=== PATIENT | female | born 1945 | race Caucasian/White ===

== ENCOUNTER 2020-11-30 09:19 | Emergency (ER) | payer OTHER, SELFPAY ==
[~2020-11-30] VITALS: Ht 162.6 cm; Wt 55.3 kg
--- NOTE | 2020-11-30 09:19 | NUR ---
[place] [facility] [place]. RN evaluating the patient at bedside.
[2020-11-30 09:20] VITALS: BP 121/60
--- NOTE | 2020-11-30 09:25 | NUR ---
RT AT BEDSIDE, PLACED PATIENT ON NON-REBREATHER 15 L/MIN. LOWERED PATIENT DOWN TO NC WITH 6L/MIN CURRENTLY AT 98% O2. RT SUCTIONED STOMA BEDSIDE. CLEANED STOMA BEDSIDE AND PLACED GAUZE OVER. PATIENT CURRENTLY STABLE. Addendum: 11/30/20 at 0941 by [email or web address] MOHINI LEVI COLLECTED SPUTUM CULTURE. MD SOLANO AWARE Addendum: 11/30/20 at 1017 by [email or web address] CLEANED STOMA WITH CLEAN TECHQNIUE
--- NOTE | 2020-11-30 09:37 | NUR ---
LAB CHIO BLOOD BEDSIDE
--- NOTE | 2020-11-30 09:39 | NUR ---
CHEST XRAY PERFORMED BEDSIDE
[2020-11-30] MEDS ORDERED: ALBUTEROL SULFATE/IPRATROPIU 3 ML SOL IH ONE ×2 (09:45→12:45)
[2020-11-30 09:46] LABS: BASOPHILS % (AUTO) 0.3 % (0.0-2.0); EOSINOPHILS # (AUTO) 0.1 K/uL (0-0.4); EOSINOPHILS % (AUTO) 0.9 % (0.0-4.0); HEMATOCRIT 30.5 % (36-48); HEMOGLOBIN 10.2 g/dL (12.0-16.0); LYMPHOCYTES # (AUTO) 0.9 K/uL (2.5-16.5); LYMPHOCYTES % (AUTO) 8.6 % (20.5-51.1); MEAN CORPUSCULAR HEMOGLOBIN 29 pg (27-31); MEAN CORPUSCULAR HGB CONC 33 g/dL (33-37); MEAN CORPUSCULAR VOLUME 86.1 fL (80-94); MONOCYTES # (AUTO) 0.8 K/uL (0.8-1.0); MONOCYTES % (AUTO) 7.7 % (1.7-9.3); NEUTROPHILS % (AUTO) 82.5 % (42.2-75.2); PLATELET COUNT (AUTO) 266 K/uL (140-450); RED BLOOD CELL COUNT(AUTO) 3.54 MIL/uL (4.20-5.40); RED CELL DISTRIBUTION WIDTH 14.8 % (11.6-13.7); WHITE BLOOD COUNT (AUTO) 10.9 K/uL (4.8-10.8)
--- NOTE | 2020-11-30 09:48 | NUR ---
RT BEDSIDE, COLLECTED ABG BLOODWORK PATIENT PLACED INTO GOWN
[2020-11-30] MEDS ORDERED: SENN-72 PO (09:52)
[2020-11-30] MEDS ORDERED: BUPR150T12 PO (09:52)
[2020-11-30] MEDS ORDERED: CHLO1SOL3 (09:52)
[2020-11-30] MEDS ORDERED: FLO110 INH (09:52)
[2020-11-30] MEDS ORDERED: ASPI-1822 PO (09:52)
[2020-11-30] MEDS ORDERED: ALBU-118 IH (09:52)
[2020-11-30] MEDS ORDERED: BUPR-10 PO (09:52)
[2020-11-30] MEDS ORDERED: GABA300C PO (09:52)
[2020-11-30] MEDS ORDERED: ACET-8386 PO (09:52)
[2020-11-30] MEDS ORDERED: HYDR-4924 PO (09:52)
[2020-11-30] MEDS ORDERED: DOCU-299 PO (09:52)
[2020-11-30] MEDS ORDERED: OXYB15TA2 PO (09:52)
[2020-11-30] MEDS ORDERED: MIRABULK PO (09:52)
[2020-11-30] MEDS ORDERED: FAMO-90 PO (09:52)
[2020-11-30] MEDS ORDERED: ACET-9525 PO (09:52)
--- NOTE | 2020-11-30 10:01 | NUR ---
PROVIDED PATIENT WATER BEDSIDE
[2020-11-30 10:04] LABS: ALBUMIN 2.6 g/dL (3.4-5.0); ANION GAP 8.2 (8-16); ASPARTATE AMINOTRANSFERASE 18 U/L (15-37); CARBON DIOXIDE 29.4 mmol/L (21-32); CHLORIDE 103 mmol/L (98-107); CREATININE 0.8 mg/dL (0.6-1.3); GLUCOSE 119 mg/dL (74-106); POTASSIUM 3.6 mmol/L (3.5-5.1); SODIUM SERUM 137 mmol/L (136-145); TOTAL BILIRUBIN 0.7 mg/dL (0.0-1.0); UREA NITROGEN, BLOOD 14 mg/dL (7-18)
--- NOTE | 2020-11-30 10:06 | NUR ---
LOWERED NC O2 TO 4L/MIN, PATIENT O2 96%
--- NOTE | 2020-11-30 10:13 | NUR ---
75 Y/O FEMALE [place] [facility] [place] STAFF NOTICED PT HAD O2 STAT OF 77% ON RA WITH SOB. TACHYPNEA 20-30 RESPIRATIONS. PATIENT COMPLAINS OF CHEST PAIN X3 DAYS, STATES "PAIN IS 7/10 AND FEELS LIKE PRESSURE IS FELT THROUGHOUT RIBS/CHEST AREA." STATES HAS SOB DUE TO CHEST PAIN. PATIENT HAD TRACHESTOMY TUBE TAKEN OUT X3 DAYS AGO, STOMA STILL OPEN. STOMA COVERED WITH GAUZE, AND PATIENT IS ABLE TO SPEAK CLEARLY WHEN PLACING HAND OVER STOMA. PMH: COPD ALLERGIES: CODEINE, DIPHENHYDRAMINE, LATEX, METHYLPREDNISOLONE, NAPROXEN, SIMVASTATIN, ADHESIVE TAPE, BACITRACIN, CEPHALEXIN, NEOMYCIN
--- NOTE | 2020-11-30 10:15 | NUR ---
RT BEDSIDE PROVIDING PATIENT WITH BREATHING TX
--- NOTE | 2020-11-30 10:58 | NUR ---
OSMEL YOLA TEST TAKEN BEDSIDE AND WALKED OVER TO LAB
--- NOTE | 2020-11-30 11:40 | NUR ---
SPOKE TO DAUGHTER MAYURI AND PROVIDED UPDATE ON CURRENT STATUS. INFORMED DAUGHTER THAT MOTHER IS STABLE AND CURRENTLY WAITING ON TRANSFER ORDERS
[2020-11-30] MEDS ORDERED: LORazepam 2 MG/ML VIAL IVP ONE ×2 (11:55)
--- NOTE | 2020-11-30 11:59 | NUR ---
CHANGED STOMA DRESSING BEDSIDE. PATIENT CURRENTLY SATING 95% ON 5 L VIA NC
--- NOTE | 2020-11-30 12:44 | NUR ---
SPOKE WITH HILLIARD FROM [facility] IN REGARDS TO TRANSFER; FAXED OVER COPY OF NEGATIVE COVID TEST
[2020-11-30] MEDS ORDERED: MAG SULF 2000 MG/WATER PREMIX 50 ML IV ONE (12:45)
--- NOTE | 2020-11-30 13:32 | NUR ---
RECIEVED CONSENT FROM PATIENT FOR TRANSFER TO [facility]
[2020-11-30] MEDS ORDERED: NACL 0.9% 500 ML IV ONE (13:40)
--- NOTE | 2020-11-30 13:48 | NUR ---
SPOKE WITH CHARGE MAVERICK FROM [facility] TO GIVE REPORT FOR PENDING TRANSFER. PER MAVERICK CHARGE WILL RECIEVE CALL BACK FROM RECIEVING NURSE FOR TRANSFER. ETA FOR EMS IS 1 HOUR.
--- NOTE | 2020-11-30 14:19 | NUR ---
GAVE REPORT TO BRUCE TEMPLE AT [facility] FOR PATIENT TRANSFER
--- NOTE | 2020-11-30 14:33 | NUR ---
[facility] at bedside for pickling operator.
[2020-11-30 14:41] VITALS: BP 119/67
--- NOTE | 2020-11-30 14:43 | NUR ---
Note undone in EDM - 11/30/20 at 1445 by [email or web address] Patient to be transferred to [facility]. Is being transferred due to . Receiving facility has accepting physician and available space. ER physician has signed transfer form. Patient or responsible democrat has agreed to transfer and signed form. Patient belongings inventoried and will be sent with patient. Copy of nursing notes, lab reports, EKG, Physicians Orders and X-rays to be sent with patient. Report called to at receiving facility. ambulance service has been called for transfer. ETA is .
--- NOTE | 2020-11-30 14:45 | NUR ---
Patient to be transferred to [facility]. Is being transferred due to CONT OF CARE AND INSURANCE REQUEST. Receiving facility has accepting physician and available space. ER physician has signed transfer form. Patient or responsible green party has agreed to transfer and signed form. Patient belongings inventoried and will be sent with patient. Copy of nursing notes, lab reports, EKG, Physicians Orders and X-rays to be sent with patient. Report called to BRUCE TEMPLE RN at receiving facility. [facility] ambulance service has been called for transfer. ETA is 1515.
--- NOTE | 2020-12-04 08:49 | NUR ---
LATE ENTRY- Sputum culture results faxed to [facility] ATTN: Nichole at [phone] Schmitz's instruction.
== END 2020-11-30 14:45 | disposition short-term general hospital (02) ==
LOC: MED 09:19
DX: J96.01 Acute respiratory failure with hypoxia (principal); J44.1 Chronic obstructive pulmonary disease with (acute) exacerbation; I11.9 Hypertensive heart disease without heart failure; Z88.2 Allergy status to sulfonamides; Z88.1 Allergy status to other antibiotic agents; Z88.6 Allergy status to analgesic agent; Z88.8 Allergy status to other drugs, medicaments and biological substances; Z91.040 Latex allergy status; Z88.5 Allergy status to narcotic agent; Z79.899 Other long term (current) drug therapy; Z20.822 Contact with and (suspected) exposure to COVID-19
CPT/HCPCS: 36415; 36600; 71045; 80053; 82803; 83605; 84484; 85025; 85379; 87070; 87186; 87205; 87426; 93005; 94640; 96365; 96366; 96375; 99291; J2060; J3475

== ENCOUNTER 2021-03-27 05:35 | Inpatient (IN) | payer OTHER, SELFPAY ==
[~2021-03-27] VITALS: Ht 160 cm; Wt 57.6 kg
[2021-03-27 05:35] VITALS: BP 115/74
[~2021-03-27 05:35] MED LIST: ACET-8386 PO; ACET-9525 PO; ALBU-118 IH; ASPI-1822 PO; BUPR-10 PO; BUPR150T12 PO; CHLO1SOL3; DOCU-299 PO; FAMO-90 PO; FLO110 INH; GABA300C PO; HYDR-4924 PO; MIRABULK PO; OXYB15TA2 PO; SENN-72 PO
--- NOTE | 2021-03-27 05:35 | NUR ---
RT AT BEDSIDE.
--- NOTE | 2021-03-27 05:35 | NUR ---
BIBA TO ROOM 10 FROM HOME WITH C/O RESPIRATORY DISTRESS. PER MEDIC POSSIBLE OD ON HYDROCODONE AND MORPHINE. NARCAN WAS GIVEN IRRIGATION WORKER. PT IS NON VERBAL AND LAST SEEN NORMAL WAS 0330. UPON ARRIVAL VENTILATIONS ARE ASSISTED PER AMBU BAG, FIO2 AT 100 %. PMH : THROAT CA NKDA
--- NOTE | 2021-03-27 05:35 | NUR ---
0530- PT MESERET VIA GURNEY TO BED 10.
--- NOTE | 2021-03-27 06:00 | NUR ---
CODE STROKE INITIATED
--- NOTE | 2021-03-27 06:10 | NUR ---
EKG DONE = ST. 20G SL INTACT TO LEFT A/C
--- NOTE | 2021-03-27 06:20 | NUR ---
TO CT VIA [facility]
--- NOTE | 2021-03-27 06:29 | NUR ---
RETURNED FROM CT
[2021-03-27] MEDS ORDERED: CARV3.12 PO (06:57)
[2021-03-27] MEDS ORDERED: ACET-9529 PO (06:59)
[2021-03-27] MEDS ORDERED: MSCON15 PO (07:04)
--- NOTE | 2021-03-27 07:12 | NUR ---
TO CT VIA [facility]
[2021-03-27 07:14] LABS: HEMATOCRIT 36.1 % (36-48); MEAN CORPUSCULAR HEMOGLOBIN 24 pg (27-31); MEAN CORPUSCULAR HGB CONC 31 g/dL (33-37); MEAN CORPUSCULAR VOLUME 77.3 fL (80-94); PLATELET COUNT (AUTO) 456 K/uL (140-450); RED BLOOD CELL COUNT(AUTO) 4.66 MIL/uL (4.20-5.40); RED CELL DISTRIBUTION WIDTH 16.9 % (11.6-13.7)
--- NOTE | 2021-03-27 07:24 | NUR ---
RETURNED FROM CT
[2021-03-27 07:27] LABS: WHITE BLOOD COUNT (AUTO) 28.6 K/uL (4.8-10.8)
[2021-03-27 07:31] LABS: LYMPHOCYTES % (MANUAL) 3 % (20-46); MONOCYTES % (MANUAL) 4 % (5-12); PROTHROMBIN TIME 12.6 secs (10.8-13.4)
--- NOTE | 2021-03-27 07:31 | NUR ---
PT ON TELE NEURO
[2021-03-27] MEDS ORDERED: NACL 0.9% 1,000 ML IV ONE (07:40)
[2021-03-27 08:17] LABS: ALBUMIN 2.8 g/dL (3.4-5.0); ANION GAP 22.4 (8-16); ASPARTATE AMINOTRANSFERASE 56 U/L (15-37); CARBON DIOXIDE 21.4 mmol/L (21-32); CHLORIDE 103 mmol/L (98-107); GLUCOSE 166 mg/dL (74-106); POTASSIUM 3.8 mmol/L (3.5-5.1); SODIUM SERUM 143 mmol/L (136-145); TOTAL BILIRUBIN 0.6 mg/dL (0.0-1.0); UREA NITROGEN, BLOOD 32 mg/dL (7-18)
[2021-03-27] MEDS ORDERED: PIPERACILLIN/TAZOBACTAM 3.375 GM in DEXTROSE 5% 50 ML IV ONE (08:30)
[2021-03-27] MEDS ORDERED: ASPIRIN 600 MG SUPP RC ONE (08:30)
[2021-03-27] MEDS ORDERED: PIPERACILLIN/TAZOBACTAM 3.375 GM VIAL IV ONE ×2 (08:33→23:29)
[2021-03-27 09:32] LABS: BILIRUBIN,URINE NEGATIVE (NEGATIVE); BLOOD, URINE 3+ (NEGATIVE); COLOR,URINE YELLOW (YELLOW); LEUKOCYTE ESTERASE ,URINE 1+ (NEGATIVE); NITRITE, URINE NEGATIVE (NEGATIVE); UGLUCOSE NEGATIVE (NEGATIVE)
--- NOTE | 2021-03-27 09:37 | NUR ---
SPOKE WITH ALIN HUANG PT'S SON [phone]. STATES HE TAKES CARE OF HER AT HOME, HER LAST KNOWN WELL WAS 11PM.
[2021-03-27 09:43] LABS: RBC,URINE 11-20 (MOD) /HPF (0-5)
[2021-03-27 09:44] LABS: WBC,URINE 16-25 (MOD) /HPF (0-5)
[2021-03-27 09:45] LABS: APPEARANCE,URINE HAZY (CLEAR)
--- NOTE | 2021-03-27 09:46 | NUR ---
RT AT BEDSIDE OBTAINING ABG
--- NOTE | 2021-03-27 09:50 | NUR ---
placed patient on bipap per md horta's orders. md robles wants settings to be 8/4 and titrate fio2 as tolerated. palced gel under bipap mask. pt has open wounds in face from previous illness. pt is alot of pain. rn aware. will continue to monitor.
--- NOTE | 2021-03-27 10:00 | NUR ---
SPOKE WITH MAYURI CARCAMO'S DAUGTHER. UPDATED ON PT STATUS. ALL QUESTIONS AND CONCERNS ANSWERED AT THIS TIME
--- NOTE | 2021-03-27 11:48 | NUR ---
Patient has eyes closed, resting in bed. Vital Signs within normal limits. Respirations even and unlabored. Chest rise is symmetrical. On Bipap. Will continue to monitor
--- NOTE | 2021-03-27 13:58 | NUR ---
PT TOLERATING BIPAP. NO NEW ORDERS. WILL CONTINUE TO MONITOR PATIENT.
--- NOTE | 2021-03-27 14:08 | NUR ---
SPOKE WITH RICA AT [facility], UPDATED ON PT STATUS
[2021-03-27] MEDS ORDERED: INTUBATION KIT MC ONE (18:06)
[2021-03-27] MEDS ORDERED: KETAMINE 10 MG/ML UD SYR **ER IVP ONE (18:15)
[2021-03-27] MEDS ORDERED: SUCCINYLCHOLINE CHLORIDE 200 MG/10 ML VIAL IV ONE (18:28)
[2021-03-27] MEDS ORDERED: ROCURONIUM 50 MG/5 ML VIAL IV ONE (18:28)
[2021-03-27] MEDS ORDERED: PROPOFOL 1000 MG/100 ML PREMIX 100 ML IV ONE (18:49)
[2021-03-27] MEDS ORDERED: DEXMEDETOMIDINE HCL 100 MCG/ML 2 ML VIAL IV ONE (19:13)
--- NOTE | 2021-03-27 19:50 | NUR ---
patient BP dropping to 70s/50s related to sedation used. JOSE MARIA made aware and MD Campa made aware.
[2021-03-27] MEDS ORDERED: MIDAZOLAM MDV 50 MG/10 ML VIAL IV ONE (20:13)
[2021-03-27] MEDS ORDERED: fentaNYL citrate 0.05 MG/ML VIAL ONE (20:15)
--- NOTE | 2021-03-27 20:17 | NUR ---
Patient BP trending down, and patient being diaphoretic and cool to the touch, ERMD made aware. Called Katheryn COLINDRES for updates and orders.
[2021-03-27] MEDS ORDERED: NOREPINEPHRINE 4 MG/4 ML VIAL IV ONE (20:28)
--- NOTE | 2021-03-27 21:25 | NUR ---
ERMD flammia at bedside attempting to insert a central line.
--- NOTE | 2021-03-27 21:40 | NUR ---
patient started a new central line in the left IJ-- patient tolerated well.
[2021-03-27 22:01] VITALS: BP 92/59
--- NOTE | 2021-03-27 23:43 | NUR ---
refer to down time hard copy
[2021-03-28] VITALS (24 sets, daily range): BP systolic 54–133; BP diastolic 36–95
[2021-03-28] MEDS ORDERED: NOREPINEPHRINE 4 MG/4 ML VIAL IV ONE ×3 (00:18→06:04)
[2021-03-28] MEDS ORDERED: MIDAZOLAM MDV 50 MG in NACL 0.9% 40 ML IV PRN (00:55)
[2021-03-28] MEDS ORDERED: ONDANSETRON 4 MG/2 ML VIAL IVP PRN ×2 (00:55→07:45)
[2021-03-28] MEDS ORDERED: ACETAMINOPHEN 325 MG TAB PO PRN (00:55)
[2021-03-28] MEDS ORDERED: DEXMEDETOMIDINE HCL 400 MCG in NACL 0.9% 96 ML IV PRN (00:55)
--- NOTE | 2021-03-28 01:00 | NUR ---
RECIEVED PT ADMISSION FROM ED, PT BIV STERLINGRNEY, A&OX0, SEDATED RASS -3, PUPILS REACTIVE 2CM, ETT TO VENT ACVC FIO2 100% TV 350 RATE 16 PEEP 5, ST ON MONITOR, PT FEBRILE TEMP 102.5 RECTAL, VS: BP 108/75 HR 128 RR37 SPO2 100%, SKIN COOL DRY AND NON INTACT, PT HAS SACRAL REDNESS AND S/P SURGICAL WOUND SITE, ABD SOFT AND NON TENDER TO TOUCH, FC IN PLACE DRAINING VIA GRAVITY, OSTOMY IN PLACE, LIJ TL INFUSING LEVOPHED @ 24MCG/MIN VERSED @ 1 MG/HR PRECEDEX @ 0.3 MCG/KG/HR, DW 49.8 KG, LAC 20 G PIV SALINE LOCKED, CALL LIGHT WITHIN REACH, SAFEY MEASURES IN PLACE, WILL CONTINUE WITH CURRENT POC
--- NOTE | 2021-03-28 01:15 | NUR ---
COOLING BLANKET AND MEASURES INITITATED
[2021-03-28] MEDS: DEXT 5% / NACL 0.45% 1,000 ML IV SCH ×3 (01:54→20:55)
--- NOTE | 2021-03-28 02:40 | NUR ---
PT TEMP 99.7 RECTAL, REPOSITIONED PT, VAP ORAL CARE GIVEN, SAFETY MEASURES IN PLACE, WILL CONTINUE WITH CURRENT POC
[2021-03-28] MEDS: NOREPINEPHRINE 8 MG in DEXTROSE 5% 250 ML IV PRN ×3 (02:56→10:01)
[2021-03-28] MEDS ORDERED: PIPERACILLIN/TAZOBACTAM 3.375 GM VIAL IV ONE (03:44)
--- NOTE | 2021-03-28 04:10 | NUR ---
MORNING CARE PROVIDED, REPOSITIONED PT, VAP ORAL CARE GIVEN, PT SHOWING SIGNS OF ACUTRE DISTRESS, SAFETY MEASURES IN PLACE
[2021-03-28] MEDS: PIPERACILLIN/TAZOBACTAM 3.375 GM in DEXTROSE 5% 50 ML IV SCH ×3 (04:32→20:28)
--- NOTE | 2021-03-28 04:33 | NUR ---
ADMINISTERED 0500H MEDICAITON PER MD ORDERS
--- NOTE | 2021-03-28 06:08 | NUR ---
PT DAUGHTER MAYURI CALLED AND UPDATED ON PTS CONDITION
[2021-03-28 06:10] LABS: ALBUMIN 2.2 g/dL (3.4-5.0); ANION GAP 17.6 (8-16); ASPARTATE AMINOTRANSFERASE 719 U/L (15-37); CARBON DIOXIDE 21.4 mmol/L (21-32); CHLORIDE 105 mmol/L (98-107); CREATININE 1.5 mg/dL (0.6-1.3); GLUCOSE 334 mg/dL (74-106); SODIUM SERUM 140 mmol/L (136-145); TOTAL BILIRUBIN 0.3 mg/dL (0.0-1.0); UREA NITROGEN, BLOOD 49 mg/dL (7-18)
[2021-03-28 06:13] LABS: HEMATOCRIT 32.8 % (36-48); HEMOGLOBIN 9.8 g/dL (12.0-16.0); MEAN CORPUSCULAR HEMOGLOBIN 23 pg (27-31); MEAN CORPUSCULAR HGB CONC 30 g/dL (33-37); MEAN CORPUSCULAR VOLUME 77.8 fL (80-94); PLATELET COUNT (AUTO) 311 K/uL (140-450); RED BLOOD CELL COUNT(AUTO) 4.22 MIL/uL (4.20-5.40); RED CELL DISTRIBUTION WIDTH 17.2 % (11.6-13.7)
--- NOTE | 2021-03-28 07:16 | NUR ---
ENDORSED TO DAY SHIFT RN FOR CONTINUITY OF CARE
[2021-03-28 07:36] LABS: WHITE BLOOD COUNT (AUTO) 26.2 K/uL (4.8-10.8)
[2021-03-28 07:37] LABS: LYMPHOCYTES % (MANUAL) 4 % (20-46); MONOCYTES % (MANUAL) 3 % (5-12)
--- NOTE | 2021-03-28 07:43 | NUR ---
ON DUTY RECEIVED THIS PT ON VENT: [id number] WITH SEDATION OF PRECEDEX 0.3. VERSED 1, LEVOPHED 32. D5 1/2 100ML/HR. VS STABLE.
[2021-03-28] MEDS ORDERED: LORazepam 2 MG/ML VIAL IM/IVP PRN (07:45)
[2021-03-28] MEDS ORDERED: ZOLPIDEM 5 MG TAB PO PRN (07:45)
[2021-03-28] MEDS ORDERED: DOCUSATE SODIUM 100 MG GELCAP PO PRN (07:45)
[2021-03-28] MEDS ORDERED: MORPHINE SULFATE 2 MG/ML SYR IVP PRN (07:45)
--- NOTE | 2021-03-28 08:09 | NUR ---
PRECEDEX, NEW BAG WAS CHANGED. DRIP IS RUNNING 0.3MCG/KG/HR. IN 3.73ML/HR.
--- NOTE | 2021-03-28 08:19 | NUR ---
PT IS STRIVING AND FIGHTING. VENT MACHINE ALERMING. PER RT REQUEST. VERSED DRIP INCREASED TO 2MG/HR FROM 1MG/HR.
[2021-03-28 08:59] LABS: CHOL/HDL RATIO 3.9 (1-4.5); FREE T4 (FREE THYROXINE) 0.91 ng/dL (0.76-1.46); PHOSPHORUS 5.3 mg/dL (2.5-4.9); THYROID STIMULATING HORMONE 1.16 uIU/mL (0.34-3.74)
--- NOTE | 2021-03-28 10:05 | NUR ---
PATIENT HAS BEEN SCREENED AND CATEGORIZED HIGH NUTRITION RISK. PATIENT WILL BE SEEN WITHIN 1-2 DAYS OF ADMISSION. 03/28/21-03/29/[address]
[2021-03-28 10:12] LABS: PROTHROMBIN TIME 13.9 secs (10.8-13.4)
--- NOTE | 2021-03-28 10:50 | NUR ---
MD POSEY AT BEDSIDE. MADE VENT CHANGES. NEW VENT CHANGES ARE PC 26 RR 20 +5 AND TITRATE FIO2 TOLERATED . PT CURRENTLY ON NEW VENT SETTINGS AND TOLERATING WELL. ABG WILL FOLLOW AT 1300 PER MD'S ORDERS. WILL CONTINUE TO MONITOR PATIENT.
[2021-03-28] MEDS ORDERED: VANCOMYCIN PER PHARMACY MC PRN (11:00)
--- NOTE | 2021-03-28 11:11 | NUR ---
DR. CHAPARRO CAME IN TO SEE PT. NEW ORDER PUT IN. VASOPRESSOR DRIP. PHENTANYL DRIP AND D/C'D PRECEDEX. VENT CHANGED TO AC/PC [id number]. 20/40. VENT ALARMING STOPPED. CHECK WOUND WAS SQUIZED BY DR. CHAPARRO. LOT OF PUS CAME OUT AND WIPPED OUT.
[2021-03-28 12:05] LABS: ANION GAP 18.7 (8-16); CARBON DIOXIDE 21.4 mmol/L (21-32); CHLORIDE 103 mmol/L (98-107); CREATININE 1.6 mg/dL (0.6-1.3); GLUCOSE 331 mg/dL (74-106); POTASSIUM 4.1 mmol/L (3.5-5.1); SODIUM SERUM 139 mmol/L (136-145); UREA NITROGEN, BLOOD 50 mg/dL (7-18)
[2021-03-28] MEDS: fentaNYL citrate 1 MG in NACL 0.9% 80 ML IV PRN (12:10)
[2021-03-28] MEDS: VASOPRESSIN 20 UNITS in NACL 0.9% 250 ML IV PRN ×2 (12:28→20:54)
[2021-03-28] MEDS ORDERED: LOVENOX 1MG/KG Q12H SUBQ SCH (12:50)
[2021-03-28] MEDS ORDERED: VANCOMYCIN 750 MG in NACL 0.9% 250 ML IV SCH (13:30)
[2021-03-28] MEDS ORDERED: ENOXAPARIN 60 MG/0.6 ML SYR SUBQ SCH (14:00)
--- NOTE | 2021-03-28 14:05 | NUR ---
03/28/21 RD INITIAL ASSESSMENT COMPLETED PLEASE REFER TO NUTRITION ASSESSMENT UNDER CARE ACTIVITY FOR ESTIMATED NUTRITIONAL NEEDS. 1. WHEN/ IF MEDICALLY STABLE START VITAL 1.2 @45ML/HR, WATER FLUSH 170ML, Q6H -THIS PROVIDES 1080 ML, 1296 KCALS AND [address] TO FOLLOW-UP 2-3 DAYS, HIGH RISK REVIEWED BY ZAKIA HURTADO RD
[2021-03-28] MEDS: ATORVASTATIN 20 MG TAB PO SCH (15:02)
[2021-03-28] MEDS: ASPIRIN 81 MG TAB.CHEW PO SCH (15:02)
--- NOTE | 2021-03-28 15:43 | NUR ---
RECEIVED TORB FROM DR. MARIA TO START TUBE FEEDING
--- NOTE | 2021-03-28 16:06 | NUR ---
DC PLANNIN YRS OLD FEMALE PATIENT WAS ADMITTED FROM HOME WITH A DX OF SEVER SEPSIS, RESPIRATORY FAILURE , ENCEPHALOPATHY. PATIENT HAS A HX OF SQUAMOUS CELL CARCINOMA OF THE MANDIBLE, CVA AND HISTORY OF TRACH HAS NOT USED TRACH SINCE DECEMBER 2020 , THE STOMA IS CLOSED. CXR SHOWED COARSE INTERSTITIAL MARKINGS , BRAIN CT SHOWED NO EVIDENCE FOR AN ACUTE INFARCT HEAD CT HIGH GRADE FOCAL STENOSIS OR ANEURYSM. INTUBATED SEDATED ON FENTANYL DRIP , IV ABX VANCOMYCIN. CONSULTED WITH CARDIO, PULMO AND NEURO. DC PLAN PER PATIENT RESPOND WITH TREATMENT. CM TO FOLLOW Addendum: 04/02/21 at 1153 by Josephine Hartmann RN DC PLANNING: PATIENT IS STILL INTUBATED SEDATED POOR PROGNOSIS. AWAITING FOR DAUGHTER TO DISCUSS WITH OTHER FAMILY TO DECIDE FOR TERMINAL EXTUBATION. RECEIVED A CALL FROM [facility] SPOKE WITH NAVEEN BARRETT PT'S CLINICAL AND FAMILY DECISION.CM TO FOLLOW Addendum: 04/04/21 at 1518 by Josephine Hartmann RN DC PLANNING: CALLED [facility] SPOKE WITH NAVEEN DISCUSSED THAT PT IS STABLE TO TRANSFER TO THE CONTRACTED FACILITY. PER NAVEEN CONFERENCE ASSISTANT MAINE APPROVE FOR THE TRANSFER, RECOMMENDED TO WAIT TO TRACH PATIENT WHEN STABLE AND TO PLCE HER IN SUBACUTE. CM TO FOLLOW Addendum: 04/05/21 at 1101 by Josephine Hartmann RN DC PLANNING: RECEIVED A CALL FROM [facility] SPOKE WITH NAVEEN STATED PER CONFERENCE ASSISTANT [facility] REQUESTED PATIENT TO BE TRANSFERRED TO [facility] NOTIFIED DR TOMAS , PT IS STABLE FOR TRANSFER . FAXED ALL PAPER WORK TO [facility]. CM TO FOLLOW Addendum: 04/05/21 at 1633 by Josephine Hartmann RN DC PLANNING: RECEIVED A CALL FROM [facility] AT [facility] STATED ACCEPTING DR IS DR TSANG AND NO ICU BED. CALLED [facility] [phone] SPOKE WITH DAVID, SHE PROVIDED THE AUTH # [id number] [facility]ANGE TRANSPORT WITH [facility] PLACE IT WILL CALL. CM TO FOLLOW
[2021-03-28] MEDS: NOREPINEPHRINE 16 MG in DEXTROSE 5% 250 ML IV PRN (18:10)
--- NOTE | 2021-03-28 18:45 | NUR ---
SPOKE TO DR. ANSARI REGARDING PT NOT MAKING URINE, PER TO ORDER A STAT BMP RIGHT NOW. WILL PUT IN ORDERS AND CONTINUE WITH ORDERS.
--- NOTE | 2021-03-28 18:56 | NUR ---
GTUBE FEEDING STARTED PER MD ORDER. VITAL 1.2 @10ML/HR. GOAL 45ML/HR. H2O 170ML Q6H. PT HAS ONLY 50ML URINE OUTPUT. DR. MARIA WAS CALLED BY CHARGE NURSE PUNEET. BMP WAS ORDERED.
[2021-03-28] MEDS ORDERED: MIDAZOLAM MDV 100 MG in NACL 0.9% 80 ML IV PRN (19:00)
--- NOTE | 2021-03-28 19:20 | NUR ---
RECEIVED REPORT FROM DAY SHIFT NURSE, ASSUMED CARE. PATIENT IN BED IN NO APPARENT ACUTE DISTRESS, RASS -3. CENTRAL LEFT IJ IN PLACE RUNNING IV'S, FENTANYL 0.5 MCG, VASOPRESSOR 0.04UNITS, LEVO 10MCG, DS 1/2 NS. LEFT AC [address], DRY AND INTACT. F/C IN PLACE. COLOSTOMY BAG IN PLACE. SKIN WITH NO APPARENT OPEN WOUNDS OR PRESSURE ULCERS. VENT SETTING ACPC, FIO2 50, RATE 20, PEEP 5. OG RUNNING VITAL AF 1.2 AT A RATE OF10 ML/HR. TEMPERATURE 97.7 AXILLARY. ALL SAFETY MEASURES IN PLACE INCLUDING BED AT LOWEST POSITION[place] [facility] [place]
--- NOTE | 2021-03-28 19:45 | NUR ---
CONTACTED DR. MARIA NOTIFIED PATIENTS UNSTABLE CONDITION FOR CT IMAGING. DR. MARIA AGREED NOT TO HAVE CT RADIOLOGY TEST DONE AT THE MOMENT.
[2021-03-28 20:30] LABS: ANION GAP 15.2 (8-16); CARBON DIOXIDE 20.3 mmol/L (21-32); CHLORIDE 101 mmol/L (98-107); CREATININE 1.2 mg/dL (0.6-1.3); GLUCOSE 237 mg/dL (74-106); POTASSIUM 3.5 mmol/L (3.5-5.1); SODIUM SERUM 133 mmol/L (136-145); UREA NITROGEN, BLOOD 48 mg/dL (7-18)
--- NOTE | 2021-03-28 20:35 | NUR ---
ADMINISTERED 2100 MEDICATION ORDERED. PATIENT SEDATED IN BED IN NO APPARENT ACUTE DISTRESS. WILL CONTINUE WITH POC.
[2021-03-29] VITALS (24 sets, daily range): BP systolic 85–127; BP diastolic 52–94
--- NOTE | 2021-03-29 01:45 | NUR ---
LEVOPHED DECREASED TO 8 MCG/MIN. PATIENT REPOSITIONED IN BED. NO ACUTE DISTRESS. ALL SAFETY MEASURES IN PLACE INCLUDING BED LOCKED AT LOWEST POSITION. WILL CONTINUE WITH POC. MNURGH
[2021-03-29] MEDS: NOREPINEPHRINE 16 MG in DEXTROSE 5% 250 ML IV PRN ×3 (01:52→22:47)
[2021-03-29] MEDS: DEXT 5% / NACL 0.45% 1,000 ML IV SCH (02:52)
--- NOTE | 2021-03-29 04:35 | NUR ---
0500 MEDICATION GIVEN. MORNING CARE PROVIDED AND REPOSITIONED PATIENT. IJ CENTRAL LINE DRY AND INTACT WITH IV DRIPS RUNNING. RECTAL TUBE IN PLACE. COLOSTOMY BAG EMPTIED WITH NO OUTPUT. OG IN PLACE RUNNING AT 20 ML/HR. BRADFORD CATHETER IN PLACE. PATIENT IN NO APPARENT ACUTE DISTRESS. ALL SAFETY MEASURES IN PLACE, BED AT LOWEST POSITION, BRAKES IN PLACE. WILL CONTINUE WITH POC.
--- NOTE | 2021-03-29 05:00 | NUR ---
OG FEEDING INCREASED TO 30ML/HR.
[2021-03-29] MEDS: PIPERACILLIN/TAZOBACTAM 3.375 GM in DEXTROSE 5% 50 ML IV SCH ×3 (05:02→20:31)
[2021-03-29] MEDS: VASOPRESSIN 20 UNITS in NACL 0.9% 250 ML IV PRN ×2 (05:56→15:30)
--- NOTE | 2021-03-29 07:15 | NUR ---
RECEIVED BEDSIDE REPORT FROM PAYROLL OFFICER NURSE. PATIENT SUPINE IN BED, HOB 30 DEGREES, SEDATED TO RASS -3. BREATHING EVEN AND UNLABORED, NO SIGNS OF ACUTE DISTRESS NOTED. ETT TO VENT: ACPC 40% FIO2, 20RR, PEEP 5. OF TUBE TO FEEDING, VITAL AF @ 30 ML/HR. BRADFORD CATHETER IN PLACE, DRAINING TO GRAVITY. COLOSTOMY BAG IN PLACE. L AC 20G, LIJ CENTRAL LINE INFUSING FENTANYL @ 0.5 MCG/KG/HR, VERSED @ 3 MG/HR, VASOPRESSIN @ 0.04 UNITS/MIN, LEVOPHED @ 8 MCG/MIN, DEXTROSE O.45NS @ 100 ML/HR. MANUAL MACHINIST IN PLACE, SAFETY MEASURES IN PLACE.
--- NOTE | 2021-03-29 07:53 | NUR ---
PT ON MECHANICAL VENTILATIO WITH CHARTED SETTINGS. TUBE IS IN PLACE AND SECURED WITH ANCHOR-FAST. VENT CONNECTED TO RED OUTLET. ALARMS AUDIBLE. AMBU BAG AT BEDSIDE. NO SOB OR DISTRESS NOTED. MD FULLER AT BEDSIDE. VENT CHANGES TITRATES PRESURES TOLERATED TO REACH 300-400 VT. DECREASED PRESSURE TO 20. WILL TITRATE TOLERATED. WILL CONTINUE TO MONITOR PATIENT.
[2021-03-29] MEDS: ASPIRIN 81 MG TAB.CHEW PO SCH (08:08)
[2021-03-29] MEDS: ATORVASTATIN 20 MG TAB PO SCH (08:08)
[2021-03-29] MEDS: ENOXAPARIN 60 MG/0.6 ML SYR SUBQ SCH (08:09)
[2021-03-29] MEDS ORDERED: VANCOMYCIN 500 MG in DEXTROSE 5% 100 ML IV SCH (09:00)
[2021-03-29 09:05] LABS: EOSINOPHILS % (AUTO) 0.1 % (0.0-4.0); HEMATOCRIT 29.8 % (36-48); LYMPHOCYTES % (AUTO) 4.3 % (20.5-51.1); MEAN CORPUSCULAR HEMOGLOBIN 23 pg (27-31); MEAN CORPUSCULAR HGB CONC 30 g/dL (33-37); MEAN CORPUSCULAR VOLUME 76.9 fL (80-94); MONOCYTES # (AUTO) 0.9 K/uL (0.8-1.0); MONOCYTES % (AUTO) 3.7 % (1.7-9.3); NEUTROPHILS # (AUTO) 21.7 K/uL (1.8-7.7); NEUTROPHILS % (AUTO) 91.9 % (42.2-75.2); PLATELET COUNT (AUTO) 173 K/uL (140-450); RED BLOOD CELL COUNT(AUTO) 3.87 MIL/uL (4.20-5.40); RED CELL DISTRIBUTION WIDTH 17.3 % (11.6-13.7); WHITE BLOOD COUNT (AUTO) 23.6 K/uL (4.8-10.8)
[2021-03-29 09:13] LABS: ANION GAP 15.5 (8-16); CARBON DIOXIDE 18.6 mmol/L (21-32); CHLORIDE 99 mmol/L (98-107); CREATININE 0.9 mg/dL (0.6-1.3); GLUCOSE 336 mg/dL (74-106); POTASSIUM 3.1 mmol/L (3.5-5.1); SODIUM SERUM 130 mmol/L (136-145); UREA NITROGEN, BLOOD 45 mg/dL (7-18)
--- NOTE | 2021-03-29 09:15 | NUR ---
WOUND CARE EVALUATION NOTE: REASON FOR EVALUATION: LOW AMILCAR SCALE AND CARCINOMA WOUNDS SKIN ASSESSMENT DONE WITH THIS 75 Y/O PT ADMITTED WITH DX ALOC. PAST MEDICAL HX INCLUDES SQUAMOUS CELL CARCINOMA OF THE MANDIBLE STATUS POST TREATMENT, CVA. ALL ABOVE INFORMATION OBTAINED FROM ADMISSION H&P. PT. ADMITTED WITH SACRALCOCCYX NON-BLANCHABLE REDNESS. PT SKIN IS COLD AND MOIST, ETT TO VENT, MID ABDOMEN COLOSTOMY, BLE NO HAIR GROWTH. DORSAL PEDAL PULSES PRESENT AND DIMINISHED. CAPILLARY REFILLED > 3 SEC. X 10 TOES. PLAN OF CARE DISCUSSED WITH PRIMARY RN. INTEGUMENTARY: -ORAL MEMBRANE PINK INTACT, LIPS, CHEEKS SKIN DRY, NO OPEN WOUNDS -RIGHT MANDIBLE TO CHIN AND RIGHT NECK AREA WITH MULTIPLE DRY SCABS. -MID NECK AREA CARCINOMA WOUND 1.5X1.5X0.2CM WOUND BED YELLOW, MODERATE AMOUNT PURULENT DRAINAGE, MILD ODOR, WOUND EDGE FLAT, KASSY-WOUND SKIN SCABBING -PRESSURE INJURY STAGE 1 SACRALCOCCYX 8X4CM MOIST BLANCHABLE REDNESS -BILATERAL FEET / HEELS COLD BLANCHABLE REDNESS SKIN INTACT RECOMMENDATIONS -PAINT RIGHT MANDIBLE, CHIN AND RIGHT NECK AREA MULTIPLE DRY SCABS WITH BETADINE SOLUTION BID AND PLANT TAXONOMY TEACHER -CLEANSE MID NECK WOUND WITH NS, PAT DRY, APPLY ALGINATE DRESSING AND COVER WITH DRY DRESSING QD AND PRN IF SOILING -CLEANSE SACRAL COCCYX WOUND WITH MILD SOAP AND WATER, PAT DRY AND COVER WITH FOAM DRESSING QD AND PRN IF SOILING -TURN AND REPOSITION PATIENT Q 2H -ASSESS AND MONITOR SKIN CONDITION DURING POSITION CHANGE -OFFLOAD BILATERAL HEELS BY PLACING PILLOWS UNDER CALVES AT ALL TIMES, UNLESS OTHERWISE CONTRAINDICATED -PRESSURE REDISTRIBUTION SURFACE THERAPY -KEEP SKIN CLEAN AND DRY AT ALL TIMES. PLEASE CONTACT WOUND CARE NURSE FOR ANY QUESTION AND CHANGE OF WOUND CONDITION.
[2021-03-29 09:27] LABS: MAGNESIUM 1.7 mg/dL (1.8-2.4)
[2021-03-29] MEDS ORDERED: NACL 0.9% 1,000 ML IV SCH (10:15)
--- NOTE | 2021-03-29 10:16 | NUR ---
DR FAROOQ AT BEDSIDE ROUNDING ON PATIENT. PER DR FAROOQ, HE MAY ORDER MEDICATIONS FOR DIURESIS, WILL AWAIT ANY NEW ORDERS. PATIENT SUPINE IN BED, SPORT 100% ON DOCUMENTED VENT SETTINGS. ACCESSORY MUSCLE USE FOR RESPIRATIONS AND SHALLOW. NO SIGNS OF ACUTE DISTRESS, WILL CONTINUE TO MONITOR.
[2021-03-29] MEDS ORDERED: FUROSEMIDE 40 MG/4 ML VIAL IVP SCH (10:37)
[2021-03-29] MEDS: SODIUM PHOS / POTASSIUM PHOS 1 PKT PDR PO PRN (12:59)
[2021-03-29] MEDS: POTASSIUM CHLORIDE 10 MEQ TABER PO PRN (12:59)
[2021-03-29] MEDS ORDERED: ALGINATE DRESSING MC PRN (13:20)
[2021-03-29] MEDS: MAG SULF 2000 MG/WATER PREMIX 50 ML IV PRN (14:15)
[2021-03-29] MEDS: FOAM DRESSING TP SCH (15:00)
[2021-03-29] MEDS: ALGINATE DRESSING MC SCH (15:00)
[2021-03-29] MEDS: ACETAMINOPHEN 325 MG TAB PO PRN (18:25)
--- NOTE | 2021-03-29 19:30 | NUR ---
RECEIVED REPORT AT BEDSIDE FROM WALLACE RN FOR CONTINUITY OF CARE, PT LYING IN BED AOX0, SHE IS SEDATED TO MAYRA -3. SHE HAS AN ETT TUBE CONNECTED TO A VENT WITH AC/PC MODE VENT SETTING FOLLOWS: FI02 35% RR 20 PEEP 5 . SHE HAS AN OG TUBE RUNNING VITAL AF AT 45MLS/HR WITH H20 FLUSH OF 170 Q 6 HRS. PT HAS A SALINE LOCKED 20G ON HER LEFT AC WELL A TRIPLE LUMEN IJ RUNNING THE FOLLOWING GTT;S VASOPRESSIN AT 0.04UNITS/MIN; FENTANYL 0.5MCG/KG/HR LEVOPHED 30MCG/MIN AND VERSED 3MG/HR. WELL NORMAL SALINE RUNNING AT 5MLS/HR. SHE HAS A SALINE LOCKED 20 . PT ALSO NOTED WITH A SCABBED AND DRIED WOUND ON HER RIGHT CHECK. SHE HAS AN INTACT BRADFORD CATHETER DRAINING YELLOW URINE. PT NOTED WITH COLD EXTREMITIES, ALTHOUGH RECTAL TEMP IS 99.5. OTHER V/S FOLLOWS: P 107 RR 23 B/P 116/67 02 100%. ALL ORDERED PRECAUTIONS IN PLACE.
--- NOTE | 2021-03-29 20:30 | NUR ---
ZOSYN HUNG AND RUNNING ORDERED. NEW CONTAINER OF FENTANYL WAS HUNG AND GTT CONTINUES ORDERED. FAMILY ARRIVED AND THEY ARE AT BEDSIDE WITH PT AT THIS TIME.
[2021-03-29] MEDS: fentaNYL citrate 1 MG in NACL 0.9% 80 ML IV PRN (20:34)
--- NOTE | 2021-03-29 21:50 | NUR ---
QUESTIONS AND CONCERNED BY THE FAMILY WAS ADDRESSED. FAMILY LEFT BEDSIDE.
--- NOTE | 2021-03-29 22:15 | NUR ---
RT WAS CALLED DUE TO PT DE STATING, SHE WAS SUCTION X2 AND RT INCREASED THE FI02 TO 50%. PT WAS ALSO REPOSITIONED AT THIS TIME. ALL ORDERED PRECAUTIONS IN PLACE.
[2021-03-30] VITALS (32 sets, daily range): BP systolic 80–126; BP diastolic 36–96
--- NOTE | 2021-03-30 00:17 | NUR ---
PT REPOSITIONED IN BED. NEW BAG OF LEVOPHED REPLACED AND ALL GTT RUNNING ORDERED. V/S FOLLOWS: T 99.6 P 100 R 21 B/P 116/61 02 100% WITH ALL CURRENT VENT SETTINGS INCLUDING FI02 AT 50%. ALL ORDERED PRECAUTIONS IN PLACE.
[2021-03-30] MEDS: GAUZE TP SCH ×2 (01:43→13:46)
--- NOTE | 2021-03-30 02:16 | NUR ---
PT STARTING TO DE-SATURATE TO MID 80'S CALLED RT TO ASSES PT.
--- NOTE | 2021-03-30 02:21 | NUR ---
RT ASSES PT 02 FI02 STILL AT 50% PT WAVE FORM REPRESENT 02 SATURATION IS NOT STEADY PT WAS SUCTIONED 02 WENT BACK UP TO 100%.
[2021-03-30] MEDS: VASOPRESSIN 20 UNITS in NACL 0.9% 250 ML IV PRN ×2 (04:08→14:19)
[2021-03-30] MEDS: ACETAMINOPHEN 325 MG TAB PO PRN ×2 (04:12→19:48)
[2021-03-30] MEDS: PIPERACILLIN/TAZOBACTAM 3.375 GM in DEXTROSE 5% 50 ML IV SCH ×3 (05:30→21:10)
--- NOTE | 2021-03-30 05:32 | NUR ---
PT WAS GIVEN PRN COLACE FOR CONSTIPATION WELL PRN TYLENOL FOR TEMPERATURE OF 100. COOLING MEASURES APPLIED. PT TURNED, CLEANED AND REPOSITIONED IN BED, SACRAL DRESSING DRY AND INTACT DRESSING. WOUND CARE PROVIDED FOR RIGHT CHEEK WELL STOMA. BRADFORD CATHETER EMPTIED 500 MLS OF YELLOW CLEAR URINE COLOSTOMY SITE CLEANED AND FECES OUTPUT MEASURES 250 IT WAS BROWN AND SOFT FORMED COLOSTOMY BAG ASLO CHANGED. ORAL CARE PROVIDED. ALL ORDERED PRECAUTIONS IN PLACE.
--- NOTE | 2021-03-30 05:56 | NUR ---
JESSIESYN HUNG AND RUNNING AT 100MLS/HR ORDERED.
[2021-03-30] MEDS ORDERED: MAG SULF 2000 MG/WATER PREMIX 50 ML IV PRN (07:20)
--- NOTE | 2021-03-30 07:21 | NUR ---
REPORT GIVEN TO RN DAYSHIFT NURSE AT BEDSIDE FOR CONTINUITY OF CARE, PT IN STABLE CONDITION.
--- NOTE | 2021-03-30 07:30 | NUR ---
RECEIVED REPORT DIANDRA REID RN. PT IS SLEERING IN BED WITH HOB 30 DEGREE.
--- NOTE | 2021-03-30 07:33 | NUR ---
MONITOR SHOW ST WITH PVC OCCASIONALLY, IV HAS CENTRAL LINE LT. IJ IN FUSSING NS KVO ,VASSOPRESSIN AT 0.027UNIT/MIN, FENTANYL AT0.5MCG/KG/MIN LEVOPHED AT 25 MCG/MIN, BRADFORD CATH DRAIN YELLOW URINE WITH SEDIMENT.
--- NOTE | 2021-03-30 07:44 | NUR ---
RECEIVED ON A StreamOceanSCAPE R860 VENTILATOR PLUGGED INTO RED OUTLET TOLERATING WELL WITHOUT COMPLICATIONS NOTED TO AN ENDOTRACHEAL TUBE #6.5 SECURED AT 23cm TEETH/GUM LINE WITH AN ANCHOR FAST CUFF PRESURE CHECKED NOTED AMBU BAG AT BEDSIDE SEDATED RESTING COMFORTABLY GOOD CHEST RISE AND AERATION THROUGHOUT BILATERAL LUNG HIGH AIRWAY PATENT
--- NOTE | 2021-03-30 08:00 | NUR ---
SEEN BY DR BURR AT [facility],, ORDER RECEIVED , TO HOLD VERSED AND WEAN OFF LEVOPHED,
--- NOTE | 2021-03-30 08:45 | NUR ---
SEEN BY DR CRYSTAL AT BED SIDE NO ORDER RECEIVE
[2021-03-30] MEDS: ASPIRIN 81 MG TAB.CHEW PO SCH (08:56)
[2021-03-30] MEDS: VANCOMYCIN 500 MG in DEXTROSE 5% 100 ML IV SCH (08:56)
[2021-03-30] MEDS: ATORVASTATIN 20 MG TAB PO SCH (08:57)
--- NOTE | 2021-03-30 08:58 | NUR ---
03/30/21 RD FOLLOW UP COMPLETED PLEASE REFER TO NUTRITION ASSESSMENT UNDER CARE ACTIVITY FOR ESTIMATED NUTRITIONAL NEEDS. 1. CONTINUE VITAL AF @45ML/HR, WATER FLUSH 170ML, Q6H -THIS PROVIDES 1080 ML, 1296 KCALS AND 81 GM PROTEIN 2. IF LAB GLUCOSE CONTINUES TO INCREASE, RECOMMEND CHANGE TUBE FEED TO GLUCERNA @ 50 ML/HR. THIS WILL PROVIDE 1140 KCAL AND [address] TO FOLLOW-UP 2-3 DAYS, HIGH RISK PATY FLORIAN RD
[2021-03-30] MEDS ORDERED: VANCOMYCIN HCL 750 MG in DEXTROSE 5% 250 ML IV SCH (09:00)
[2021-03-30 09:04] LABS: ANION GAP 16.1 (8-16); CHLORIDE 99 mmol/L (98-107); CREATININE 0.8 mg/dL (0.6-1.3); GLUCOSE 183 mg/dL (74-106); POTASSIUM 3.1 mmol/L (3.5-5.1); SODIUM SERUM 132 mmol/L (136-145); UREA NITROGEN, BLOOD 34 mg/dL (7-18)
[2021-03-30] MEDS: ENOXAPARIN 60 MG/0.6 ML SYR SUBQ SCH (09:20)
[2021-03-30] MEDS: NOREPINEPHRINE 16 MG in DEXTROSE 5% 250 ML IV PRN ×2 (09:37→20:24)
[2021-03-30 10:54] LABS: BASOPHILS % (AUTO) 0.1 % (0.0-2.0); EOSINOPHILS % (AUTO) 0.1 % (0.0-4.0); HEMATOCRIT 29.1 % (36-48); HEMOGLOBIN 9.1 g/dL (12.0-16.0); LYMPHOCYTES # (AUTO) 1.1 K/uL (2.5-16.5); LYMPHOCYTES % (AUTO) 5.9 % (20.5-51.1); MEAN CORPUSCULAR HEMOGLOBIN 24 pg (27-31); MEAN CORPUSCULAR HGB CONC 31 g/dL (33-37); MEAN CORPUSCULAR VOLUME 75.6 fL (80-94); MONOCYTES % (AUTO) 5.5 % (1.7-9.3); NEUTROPHILS % (AUTO) 88.4 % (42.2-75.2); PLATELET COUNT (AUTO) 152 K/uL (140-450); RED BLOOD CELL COUNT(AUTO) 3.86 MIL/uL (4.20-5.40); RED CELL DISTRIBUTION WIDTH 17.2 % (11.6-13.7); WHITE BLOOD COUNT (AUTO) 18.1 K/uL (4.8-10.8)
--- NOTE | 2021-03-30 11:03 | NUR ---
SEDATED RESTING WELL GOOD CHEST RISE AND AERATION THROUGHOUT BILATERAL LUNG HIGH AIRWAY PATENT
--- NOTE | 2021-03-30 12:30 | NUR ---
VISIT BY FAMILY WINSOMEHTSUZETTE UP DATE PT, CONDITION, FAMILY SAID THEY LIKE TO TAKE PT. HOME ,RECOMMENT THAT SHE SOULD SHOULD TALK TO THE DOCTOR.
[2021-03-30] MEDS: ALGINATE DRESSING MC SCH (13:44)
--- NOTE | 2021-03-30 14:16 | NUR ---
SEDATED STABLE EQUAL CHEST RISE AIRWAY PATENT
--- NOTE | 2021-03-30 15:30 | NUR ---
SEEN BY DR CAMPOS, ORDER RECEIVED
[2021-03-30] MEDS ORDERED: KCL 20 MEQ/WATER INJ PREMIX 200 ML IV SCH (16:00)
--- NOTE | 2021-03-30 16:10 | NUR ---
K RIDER 40 MEQ STARTED,
--- NOTE | 2021-03-30 16:25 | NUR ---
SEDATED NO EVIDENCE OF PULMONARY DISTRESS NOTED EQUAL CHEST RISE GOOD AERATION THROUGHOUT BILATERAL LUNG HIGH AIRWAY PATENT
--- NOTE | 2021-03-30 16:45 | NUR ---
TYLENOL GIVEN ORDERED.
--- NOTE | 2021-03-30 18:15 | NUR ---
ALL IV IN PROGRESS,BRADFORD DRAIN 275 ML. COLOSTOMY DRAIN 100ML. TEMP 100.3 ON THERMOBLANKET.
--- NOTE | 2021-03-30 19:15 | NUR ---
RECEIVED PATIENT FROM AM SHIFT NURSE FOR CONTINUITY OF CARE. RASS -3. ETT TO VENT. RESPIRATIONS EVEN, SLIGHTLY TACHYPNEIC. S1/S2 AUSCULTATED. FLACC 0. SKIN WARM, DRY. RIGHT CHEEK DRESSING CLEAN/DRY AND INTACT. LEFT IJ PATENT/INTACT, INFUSING LEVOPHED, FENTANYL, VASOPRESSIN AND POTASSIUM WELL. COOLING BLANKET IN PLACE DUE TO ELEVATED TEMPERATURE. ABDOMEN SOFT, NONTENDER, NONDISTENDED. BOWEL SOUNDS ACTIVE x4 QUADRANTS. OGT IN PLACE. TUBE FEEDING HELD DUE TO HIGH RESIDUAL 350 ML. COLOSTOMY NOTED, STOMA PINK/MOIST. LIQUID BROWN STOOL NOTED. BRADFORD CATHETER PATENT WITH YELLOW URINE DRAINING TO GRAVITY. SAFETY PRECAUTIONS IN PLACE. PLAN OF CARE DISCUSSED.
--- NOTE | 2021-03-30 21:30 | NUR ---
DUE MEDS GIVEN. RESPIRATIONS EVEN, SLIGHTLY TACHYPNEIC. RASS -3. FLACC 0. PATIENT IS CLEAN/DRY.
--- NOTE | 2021-03-30 23:18 | NUR ---
PATIENT TURNED AND REPOSITIONED FOR COMFORT. NO S/S RESPIRATORY DISTRESS. FLACC 0. PATIENT IS CLEAN/DRY. CLOSE MONITORING BY ALL STAFF.
[2021-03-31] VITALS (29 sets, daily range): BP systolic 105–124; BP diastolic 64–94
--- NOTE | 2021-03-31 01:02 | NUR ---
TUBE FEEDING HELD DUE TO HIGH RESIDUAL 290 ML. NO S/S RESPIRATORY DISTRESS. FLACC 0. PATIENT IS CLEAN/DRY.
[2021-03-31] MEDS: GAUZE TP SCH ×2 (01:03→13:29)
--- NOTE | 2021-03-31 03:13 | NUR ---
VAP ORAL CARE RENDERED BY RT.
[2021-03-31] MEDS: VASOPRESSIN 20 UNITS in NACL 0.9% 250 ML IV PRN ×2 (03:43→22:00)
[2021-03-31] MEDS: PIPERACILLIN/TAZOBACTAM 3.375 GM in DEXTROSE 5% 50 ML IV SCH ×3 (04:50→21:51)
--- NOTE | 2021-03-31 05:25 | NUR ---
ALL NEEDS MET AND ANTICIPATED. NO S/S RESPIRATORY DISTRESS. FLACC 0. PATIENT IS CLEAN/DRY.
[2021-03-31 06:07] LABS: BASOPHILS % (AUTO) 0.2 % (0.0-2.0); EOSINOPHILS # (AUTO) 0.1 K/uL (0-0.4); EOSINOPHILS % (AUTO) 0.3 % (0.0-4.0); HEMATOCRIT 30.2 % (36-48); HEMOGLOBIN 9.5 g/dL (12.0-16.0); LYMPHOCYTES # (AUTO) 1.4 K/uL (2.5-16.5); MEAN CORPUSCULAR HEMOGLOBIN 24 pg (27-31); MEAN CORPUSCULAR HGB CONC 31 g/dL (33-37); MEAN CORPUSCULAR VOLUME 75.4 fL (80-94); MONOCYTES # (AUTO) 1.5 K/uL (0.8-1.0); MONOCYTES % (AUTO) 6.8 % (1.7-9.3); NEUTROPHILS # (AUTO) 18.6 K/uL (1.8-7.7); PLATELET COUNT (AUTO) 198 K/uL (140-450); RED BLOOD CELL COUNT(AUTO) 4.01 MIL/uL (4.20-5.40); RED CELL DISTRIBUTION WIDTH 17.1 % (11.6-13.7); WHITE BLOOD COUNT (AUTO) 21.6 K/uL (4.8-10.8)
[2021-03-31 06:49] LABS: ANION GAP 11.1 (8-16); CARBON DIOXIDE 24.9 mmol/L (21-32); CHLORIDE 98 mmol/L (98-107); CREATININE 0.5 mg/dL (0.6-1.3); GLUCOSE 158 mg/dL (74-106); SODIUM SERUM 130 mmol/L (136-145); UREA NITROGEN, BLOOD 29 mg/dL (7-18)
[2021-03-31 07:00] LABS: NEUTROPHILS % (AUTO) 86.1 % (42.2-75.2)
[2021-03-31 07:01] LABS: LYMPHOCYTES % (AUTO) 6.6 % (20.5-51.1)
[2021-03-31] MEDS: VANCOMYCIN 500 MG in DEXTROSE 5% 100 ML IV SCH (08:32)
[2021-03-31] MEDS: ATORVASTATIN 20 MG TAB PO SCH (08:32)
[2021-03-31] MEDS: ASPIRIN 81 MG TAB.CHEW PO SCH (08:32)
--- NOTE | 2021-03-31 08:50 | NUR ---
SEEN BY DR. CRYSTAL, [facility].WILL TALK TO FAMILY REGARDING HOSPICC.
[2021-03-31] MEDS: ENOXAPARIN 60 MG/0.6 ML SYR SUBQ SCH (09:15)
[2021-03-31] MEDS: ALGINATE DRESSING MC SCH (13:28)
--- NOTE | 2021-03-31 14:48 | NUR ---
SEEN BY DR. CAMPOS , ORDER RECEIVED.
[2021-03-31] MEDS ORDERED: SODIUM PHOSPHATE 15 MMOLE in NACL 0.9% 250 ML IV SCH (15:30)
--- NOTE | 2021-03-31 15:43 | NUR ---
GAVE TELEPHONE READBACK OF ABG RESULTS TO DR. BURR. ADVISED TO TELL RN TO INCREASE SEDATION/PAIN MEDS. NO VENT CHANGES TO BE MADE AT THIS TIME. WILL CONTINUE TO MONITOR.
--- NOTE | 2021-03-31 15:56 | NUR ---
SEEN BY DR. SALGUERO NO ORDER RECEIVED.
[2021-03-31] MEDS: DEXMEDETOMIDINE HCL 400 MCG in NACL 0.9% 96 ML IV PRN (16:11)
--- NOTE | 2021-03-31 16:45 | NUR ---
PT BREATHING IS AT 38/MIN DR. BURR AWARE , PAIN MED GIVEN ORDERED.
--- NOTE | 2021-03-31 18:20 | NUR ---
FAMILY CAME TO VISIT AT BED SIDE,
--- NOTE | 2021-03-31 19:10 | NUR ---
RT SLEEP V/S WITH IN NORMAL LIMIT, REPORT GIVE TO TOI FOR CONTINUE CARE,
--- NOTE | 2021-03-31 19:10 | NUR ---
RECEIVED PATIENT FROM AM SHIFT NURSE FOR CONTINUITY OF CARE. RASS -3. ETT TO VENT. RESPIRATIONS EVEN, SLIGHTLY TACHYPNEIC. S1/S2 AUSCULTATED. FLACC 0. SKIN WARM, DRY. RIGHT CHEEK DRESSING CLEAN/DRY AND INTACT. LEFT IJ PATENT/INTACT, INFUSING LEVOPHED, PRECEDEX, VASOPRESSIN AND SODIUM PHOSPHATE WELL. ABDOMEN SOFT, NONTENDER, NONDISTENDED. BOWEL SOUNDS ACTIVE x4 QUADRANTS. OGT IN PLACE. CONTINUES ON ENTERAL FEEDING AT LOW RATE. RESIDUAL IS 175 ML. COLOSTOMY NOTED, STOMA PINK/MOIST. LIQUID BROWN STOOL NOTED. BRADFORD CATHETER PATENT WITH YELLOW URINE DRAINING TO GRAVITY. SAFETY PRECAUTIONS IN PLACE. PLAN OF CARE DISCUSSED. CLOSE MONITORING BY ALL STAFF.
[2021-03-31] MEDS ORDERED: VANCOMYCIN 500 MG in DEXTROSE 5% 100 ML IV SCH (20:00)
--- NOTE | 2021-03-31 21:29 | NUR ---
FAMILY AT BEDSIDE.
--- NOTE | 2021-03-31 23:00 | NUR ---
PATIENT TURNED AND REPOSITIONED. NO S/S RESPIRATORY DISTRESS. FLACC 0. PATIENT IS CLEAN/DRY. CLOSE MONITORING BY ALL STAFF.
[2021-04-01] VITALS (30 sets, daily range): BP systolic 96–125; BP diastolic 40–85
[2021-04-01] MEDS: GAUZE TP SCH ×2 (01:10→13:12)
--- NOTE | 2021-04-01 01:10 | NUR ---
VAP ORAL CARE RENDERED.
--- NOTE | 2021-04-01 03:29 | NUR ---
NO S/S RESPIRATORY DISTRESS. FLACC 0. PATIENT IS CLEAN/DRY. CLOSE MONITORING BY ALL STAFF.
[2021-04-01] MEDS: NOREPINEPHRINE 16 MG in DEXTROSE 5% 250 ML IV PRN (03:50)
[2021-04-01] MEDS: PIPERACILLIN/TAZOBACTAM 3.375 GM in DEXTROSE 5% 50 ML IV SCH ×3 (05:03→20:48)
--- NOTE | 2021-04-01 05:04 | NUR ---
DUE MEDS GIVEN. NO S/S RESPIRATORY DISTRESS. FLACC 0. PATIENT IS CLEAN/DRY. CLOSE MONITORING BY ALL STAFF.
[2021-04-01 06:17] LABS: EOSINOPHILS # (AUTO) 0.1 K/uL (0-0.4); EOSINOPHILS % (AUTO) 0.5 % (0.0-4.0); HEMATOCRIT 27.7 % (36-48); HEMOGLOBIN 8.6 g/dL (12.0-16.0); LYMPHOCYTES # (AUTO) 1.4 K/uL (2.5-16.5); LYMPHOCYTES % (AUTO) 6.3 % (20.5-51.1); MEAN CORPUSCULAR HEMOGLOBIN 24 pg (27-31); MEAN CORPUSCULAR HGB CONC 31 g/dL (33-37); MEAN CORPUSCULAR VOLUME 75.9 fL (80-94); MONOCYTES # (AUTO) 1.7 K/uL (0.8-1.0); MONOCYTES % (AUTO) 7.4 % (1.7-9.3); NEUTROPHILS # (AUTO) 19.1 K/uL (1.8-7.7); NEUTROPHILS % (AUTO) 85.8 % (42.2-75.2); PLATELET COUNT (AUTO) 231 K/uL (140-450); RED BLOOD CELL COUNT(AUTO) 3.65 MIL/uL (4.20-5.40); RED CELL DISTRIBUTION WIDTH 17.1 % (11.6-13.7); WHITE BLOOD COUNT (AUTO) 22.3 K/uL (4.8-10.8)
[2021-04-01 06:32] LABS: ANION GAP 8.9 (8-16); CARBON DIOXIDE 24.6 mmol/L (21-32); CHLORIDE 103 mmol/L (98-107); CREATININE 0.5 mg/dL (0.6-1.3); GLUCOSE 139 mg/dL (74-106); POTASSIUM 3.5 mmol/L (3.5-5.1); SODIUM SERUM 133 mmol/L (136-145); UREA NITROGEN, BLOOD 22 mg/dL (7-18)
--- NOTE | 2021-04-01 07:30 | NUR ---
RECEIVED REPORT FROM REHAB CONSULTANT NURSE FOR CONTINUITY OF CARE. ETT TO VENT. ACPRVC 28% TV 375 R 20 PEEP 5 RESPIRATIONS EVEN, SLIGHTLY TACHYPNEIC. FLACC 0. OBTUNDED, RESPONSIVE TO DEEP PAIN. NO EYE OPENING. SKIN WARM, DRY. LEFT IJ CENTRAL LINE INFUSING LEVOPHED 16MCG/MIN, PRECEDEX 0.4 MCG/KG/HR, VASOPRESSIN 0.03U/MIN. ABDOMEN SOFT, NONTENDER, NONDISTENDED. BOWEL SOUNDS ACTIVE x4 QUADRANTS. OGT IN PLACE. ON ENTERAL FEEDING AT 10CC/HR D/T HIGH RESIDUALS. COLOSTOMY PATENT, STOMA PINK/MOIST. LIQUID BROWN STOOL NOTED. BRADFORD CATHETER PATENT WITH YELLOW URINE DRAINING TO GRAVITY. SAFETY PRECAUTIONS IN PLACE. WILL CONTINUE TO MONITOR
--- NOTE | 2021-04-01 08:50 | NUR ---
GT RESIDUALS 120CC. DUE MEDS GIVEN, ORAL CARE AND BRADFORD CARE DONE. MULTIPLE WOUND DRESSINGS CHANGED. LIJ CENTRAL LINE DRESSING CHANGED
[2021-04-01] MEDS: SODIUM PHOS / POTASSIUM PHOS 1 PKT PDR PO PRN (09:00)
[2021-04-01] MEDS: ASPIRIN 81 MG TAB.CHEW PO SCH (09:39)
[2021-04-01] MEDS: ATORVASTATIN 20 MG TAB PO SCH (09:39)
[2021-04-01] MEDS: ENOXAPARIN 60 MG/0.6 ML SYR SUBQ SCH (09:39)
[2021-04-01] MEDS: FOAM DRESSING TP SCH (09:39)
[2021-04-01] MEDS: VASOPRESSIN 20 UNITS in NACL 0.9% 250 ML IV PRN ×2 (09:41→20:25)
--- NOTE | 2021-04-01 11:30 | NUR ---
SEEN AND EXAMINED BY DR CRYSTAL
[2021-04-01] MEDS: VANCOMYCIN 1,000 MG in DEXTROSE 5% 250 ML IV SCH (11:57)
[2021-04-01] MEDS: ALGINATE DRESSING MC SCH (13:11)
[2021-04-01] MEDS: levETIRAcetam 1,000 MG in NACL 0.9% 100 ML IV SCH ×2 (13:15→20:48)
--- NOTE | 2021-04-01 13:36 | NUR ---
SEEN AND EXAMINED BY DR PURCELL
--- NOTE | 2021-04-01 13:47 | NUR ---
MELODY FROM [facility] THAT PROVIDES TPN TO PT CALLED ABOUT POSSIBLE DISCHARGE, NOTIFIED PT WILL NOT BE DISCHARGED SOON Addendum: 04/01/21 at 1349 by Steven Lee RN MELODY [phone]
--- NOTE | 2021-04-01 14:15 | NUR ---
SEEN BY DR BAH
--- NOTE | 2021-04-01 16:30 | NUR ---
KASSY CARE DONE, CHANGED COLOSTOMY BAG, TURNED AND REPOSITIONED PT
[2021-04-01] MEDS: DEXMEDETOMIDINE HCL 400 MCG in NACL 0.9% 96 ML IV PRN (17:00)
--- NOTE | 2021-04-01 19:10 | NUR ---
RECEIVED PATIENT FROM AM SHIFT NURSE FOR CONTINUITY OF CARE. RASS -3. ETT TO VENT. RESPIRATIONS EVEN, SLIGHTLY TACHYPNEIC. S1/S2 AUSCULTATED. FLACC 0. SKIN WARM, DRY. RIGHT CHEEK DRESSING CLEAN/DRY AND INTACT. LEFT IJ PATENT/INTACT, INFUSING LEVOPHED, PRECEDEX, VASOPRESSIN WELL. RIGHT CHEST PORTACATH NOTED. DRESSING CLEAN/DRY AND INTACT. ABDOMEN SOFT, NONTENDER, NONDISTENDED. BOWEL SOUNDS ACTIVE x4 QUADRANTS. OGT IN PLACE. CONTINUES ON ENTERAL FEEDING, TOLERATING WELL. HOB UP 45 DEGREES. COLOSTOMY NOTED, STOMA PINK/MOIST. LIQUID BROWN STOOL NOTED. BRADFORD CATHETER PATENT WITH YELLOW URINE DRAINING TO GRAVITY. SAFETY PRECAUTIONS IN PLACE. PLAN OF CARE DISCUSSED. CLOSE MONITORING BY ALL STAFF.
--- NOTE | 2021-04-01 21:23 | NUR ---
DUE MEDS GIVEN. NO S/S RESPIRATORY DISTRESS. FLACC 0. PATIENT IS CLEAN/DRY. CLOSE MONITORING BY ALL STAFF.
[2021-04-01] MEDS: HYDROcodone/APAP 5/325 MG 1 TAB TAB PO PRN (21:55)
--- NOTE | 2021-04-01 23:03 | NUR ---
TURNED AND REPOSITIONED. NO S/S RESPIRATORY DISTRESS. FLACC 0. PATIENT IS CLEAN/DRY. CLOSE MONITORING BY ALL STAFF.
[2021-04-02] VITALS (30 sets, daily range): BP systolic 95–120; BP diastolic 48–73
[2021-04-02] MEDS: GAUZE TP SCH ×2 (00:40→13:16)
--- NOTE | 2021-04-02 01:22 | NUR ---
VAP ORAL CARE RENDERED.
--- NOTE | 2021-04-02 03:00 | NUR ---
NO S/S RESPIRATORY DISTRESS. FLACC 0. PATIENT IS CLEAN/DRY. CLOSE MONITORING BY ALL STAFF.
[2021-04-02] MEDS: PIPERACILLIN/TAZOBACTAM 3.375 GM in DEXTROSE 5% 50 ML IV SCH ×3 (04:36→20:00)
--- NOTE | 2021-04-02 05:30 | NUR ---
ALL NEEDS ANTICIPATED AND MET. NO S/S RESPIRATORY DISTRESS. FLACC 0. PATIENT IS CLEAN/DRY. CLOSE MONITORING BY ALL STAFF.
[2021-04-02 06:14] LABS: BASOPHILS % (AUTO) 0.1 % (0.0-2.0); EOSINOPHILS # (AUTO) 0.4 K/uL (0-0.4); EOSINOPHILS % (AUTO) 3.1 % (0.0-4.0); HEMATOCRIT 23.8 % (36-48); HEMOGLOBIN 7.4 g/dL (12.0-16.0); LYMPHOCYTES # (AUTO) 1.2 K/uL (2.5-16.5); LYMPHOCYTES % (AUTO) 8.8 % (20.5-51.1); MEAN CORPUSCULAR HEMOGLOBIN 24 pg (27-31); MEAN CORPUSCULAR HGB CONC 31 g/dL (33-37); MEAN CORPUSCULAR VOLUME 76.8 fL (80-94); MONOCYTES # (AUTO) 1.1 K/uL (0.8-1.0); MONOCYTES % (AUTO) 8.6 % (1.7-9.3); NEUTROPHILS # (AUTO) 10.6 K/uL (1.8-7.7); NEUTROPHILS % (AUTO) 79.4 % (42.2-75.2); PLATELET COUNT (AUTO) 197 K/uL (140-450); RED CELL DISTRIBUTION WIDTH 17.2 % (11.6-13.7); WHITE BLOOD COUNT (AUTO) 13.3 K/uL (4.8-10.8)
[2021-04-02 06:45] LABS: ANION GAP 9.6 (8-16); CARBON DIOXIDE 25.4 mmol/L (21-32); CHLORIDE 100 mmol/L (98-107); CREATININE 0.4 mg/dL (0.6-1.3); GLUCOSE 117 mg/dL (74-106); SODIUM SERUM 132 mmol/L (136-145); UREA NITROGEN, BLOOD 21 mg/dL (7-18)
--- NOTE | 2021-04-02 07:19 | NUR ---
ENDORSED PATIENT TO AM SHIFT NURSE FOR CONTINUITY OF CARE.
--- NOTE | 2021-04-02 07:30 | NUR ---
RECEIVED REPORT FROM STRATEGIC MARKETING ASSOCIATE NURSE FOR CONTINUITY OF CARE. ETT TO VENT. ACPRVC 24% TV 375 R 20 PEEP 5 RESPIRATIONS EVEN, SLIGHTLY TACHYPNEIC. FLACC 0. OBTUNDED, RESPONSIVE TO DEEP PAIN. NO EYE OPENING. SKIN WARM, DRY. LEFT IJ CENTRAL LINE INFUSING PRECEDEX 0.3 MCG/KG/HR, VASOPRESSIN 0.03U/MIN. ABDOMEN SOFT, NONTENDER, NONDISTENDED. BOWEL SOUNDS ACTIVE x4 QUADRANTS. OGT IN PLACE. ON ENTERAL FEEDING AT 30CC/HR. COLOSTOMY PATENT, STOMA PINK/MOIST. LIQUID BROWN STOOL NOTED. BRADFORD CATHETER PATENT WITH YELLOW URINE DRAINING TO GRAVITY. SAFETY PRECAUTIONS IN PLACE. WILL CONTINUE TO MONITOR
[2021-04-02] MEDS: ENOXAPARIN 60 MG/0.6 ML SYR SUBQ SCH (08:08)
[2021-04-02] MEDS: ATORVASTATIN 20 MG TAB PO SCH (08:44)
[2021-04-02] MEDS: ASPIRIN 81 MG TAB.CHEW PO SCH (08:44)
[2021-04-02] MEDS: levETIRAcetam 1,000 MG in NACL 0.9% 100 ML IV SCH ×2 (08:44→20:41)
--- NOTE | 2021-04-02 08:50 | NUR ---
GT RESIDUALS 60CC. DUE MEDS GIVEN. TOLERATED WELL. ORAL CARE AND BRADFORD CARE DONE. TURNED AND REPOSITIONED PT
[2021-04-02] MEDS: HYDROcodone/APAP 5/325 MG 1 TAB TAB PO PRN (09:02)
[2021-04-02] MEDS: SODIUM PHOS / POTASSIUM PHOS 1 PKT PDR PO PRN (09:03)
[2021-04-02] MEDS: VASOPRESSIN 20 UNITS in NACL 0.9% 250 ML IV PRN (09:29)
--- NOTE | 2021-04-02 11:00 | NUR ---
NECK WOUND DRESSINGS CHANGED
[2021-04-02] MEDS: VANCOMYCIN 1,000 MG in DEXTROSE 5% 250 ML IV SCH (12:06)
--- NOTE | 2021-04-02 12:15 | NUR ---
DAUGHTER, JONATHAN, AT BEDSIDE. REQUESTED TO TALK TO . NOTIFIED DR MARIA
[2021-04-02] MEDS: ALGINATE DRESSING MC SCH (13:16)
--- NOTE | 2021-04-02 13:59 | NUR ---
04/02/21 RD FOLLOW UP COMPLETED PLEASE REFER TO NUTRITION ASSESSMENT UNDER CARE ACTIVITY FOR ESTIMATED NUTRITIONAL NEEDS. 1. GRADUALLY INCREASE TO VITAL AF @45ML/HR, WATER FLUSH 170ML, Q6H -THIS PROVIDES 1080 ML, 1296 KCAL AND 81 GM PROTEIN/DAY WHICH WILL PROVIDE ADEQUATE NUTRIENT NEEDS 2. CONTINUE NOVA ONCE DAILY 3. RD TO FOLLOW-UP 2-3 DAYS, HIGH RISK ZAKIA HURTADO RD
--- NOTE | 2021-04-02 14:51 | NUR ---
FLACC 0, NO RESPIRATORY DISTRESS
--- NOTE | 2021-04-02 17:17 | NUR ---
KASSY CARE DONE. TURNED AND REPOSITIONED PT
--- NOTE | 2021-04-02 19:10 | NUR ---
RECEIVED PATIENT FROM AM SHIFT NURSE FOR CONTINUITY OF CARE. RASS -3. ETT TO VENT. RESPIRATIONS EVEN, SLIGHTLY TACHYPNEIC. S1/S2 AUSCULTATED. FLACC 0. SKIN WARM, DRY. RIGHT CHEEK DRESSING CLEAN/DRY AND INTACT. LEFT IJ PATENT/INTACT, INFUSING PRECEDEX AND VASOPRESSIN WELL. RIGHT CHEST PORTACATH NOTED. DRESSING CLEAN/DRY AND INTACT. ABDOMEN SOFT, NONTENDER, NONDISTENDED. BOWEL SOUNDS ACTIVE x4 QUADRANTS. OGT IN PLACE. CONTINUES ON ENTERAL FEEDING, TOLERATING WELL. HOB UP 45 DEGREES. COLOSTOMY NOTED, STOMA PINK/MOIST. LIQUID BROWN STOOL NOTED. BRADFORD CATHETER PATENT WITH YELLOW URINE DRAINING TO GRAVITY. SAFETY PRECAUTIONS IN PLACE. PLAN OF CARE DISCUSSED. CLOSE MONITORING BY ALL STAFF.
[2021-04-02] MEDS ORDERED: KCL 20 MEQ/WATER INJ PREMIX 200 ML IV SCH (20:20)
[2021-04-02] MEDS ORDERED: KCL 20 MEQ/WATER INJ PREMIX 200 ML IV ONE (20:21)
--- NOTE | 2021-04-02 21:22 | NUR ---
DUE MEDS GIVEN. NO S/S RESPIRATORY DISTRESS. FLACC 0. PATIENT IS CLEAN/DRY. CLOSE MONITORING BY ALL STAFF.
[2021-04-02] MEDS: DEXMEDETOMIDINE HCL 400 MCG in NACL 0.9% 96 ML IV PRN (22:10)
--- NOTE | 2021-04-02 23:00 | NUR ---
PATIENT TURNED AND REPOSITIONED. NO S/S RESPIRATORY DISTRESS. FLACC 0. PATIENT IS CLEAN/DRY. CLOSE MONITORING BY ALL STAFF.
[2021-04-03] VITALS (30 sets, daily range): BP systolic 84–127; BP diastolic 43–83
[2021-04-03] MEDS: GAUZE TP SCH ×2 (00:02→11:50)
--- NOTE | 2021-04-03 01:30 | NUR ---
PATIENT IS OFF OF VASOPRESSIN. BLOOD PRESSURE AND HR IS WNL. CLOSE MONITORING BY ALL STAFF.
--- NOTE | 2021-04-03 03:12 | NUR ---
VAP ORAL CARE RENDERED.
[2021-04-03] MEDS: PIPERACILLIN/TAZOBACTAM 3.375 GM in DEXTROSE 5% 50 ML IV SCH ×3 (04:19→21:00)
[2021-04-03 04:48] LABS: ANION GAP 12.8 (8-16); CARBON DIOXIDE 23.9 mmol/L (21-32); CHLORIDE 104 mmol/L (98-107); CREATININE 0.4 mg/dL (0.6-1.3); GLUCOSE 94 mg/dL (74-106); POTASSIUM 3.7 mmol/L (3.5-5.1); SODIUM SERUM 137 mmol/L (136-145); UREA NITROGEN, BLOOD 15 mg/dL (7-18)
[2021-04-03 05:20] LABS: EOSINOPHILS # (AUTO) 0.1 K/uL (0-0.4); EOSINOPHILS % (AUTO) 0.8 % (0.0-4.0); HEMOGLOBIN 8.5 g/dL (12.0-16.0); LYMPHOCYTES # (AUTO) 0.9 K/uL (2.5-16.5); LYMPHOCYTES % (AUTO) 6.6 % (20.5-51.1); MEAN CORPUSCULAR HEMOGLOBIN 24 pg (27-31); MEAN CORPUSCULAR HGB CONC 32 g/dL (33-37); MEAN CORPUSCULAR VOLUME 76.2 fL (80-94); MONOCYTES # (AUTO) 1.1 K/uL (0.8-1.0); MONOCYTES % (AUTO) 8.2 % (1.7-9.3); NEUTROPHILS # (AUTO) 11.6 K/uL (1.8-7.7); NEUTROPHILS % (AUTO) 84.4 % (42.2-75.2); PLATELET COUNT (AUTO) 268 K/uL (140-450); RED BLOOD CELL COUNT(AUTO) 3.54 MIL/uL (4.20-5.40); RED CELL DISTRIBUTION WIDTH 16.8 % (11.6-13.7); WHITE BLOOD COUNT (AUTO) 13.7 K/uL (4.8-10.8)
--- NOTE | 2021-04-03 05:53 | NUR ---
ALL NEEDS ANTICIPATED AND MET. DRESSINGS OVER OLD STOMA AND RIGHT CHEEK CHANGED DUE TO SOILAGE. NO S/S RESPIRATORY DISTRESS. FLACC 0. PATIENT IS CLEAN/DRY. CLOSE MONITORING BY ALL STAFF.
[2021-04-03] MEDS: MAG SULF 2000 MG/WATER PREMIX 50 ML IV PRN (05:57)
--- NOTE | 2021-04-03 07:30 | NUR ---
RECEIVED ON A [employer]board[employer]APE R860 VENTILATOR PLUGGED INT RED OUTLET TOLERATING WELL WITHOUT COMPLICATIONS NOTED TO AN ENDOTRACHEAL TUBE #6.5 SECURED AT 23cm TEETH/GUM LINE WITH AN ANCHOR FAST CUFF PRESSURE CHECKED NOTED AMBU BAG NOTED AT BEDSIDE LOC SEDATED GOOD CHEST RISE AND AERATION THROUGHOUT BILATERAL LUNG HIGH AIRWAY PATENT NO SUCTIONING NEEDED AT THIS TIME
--- NOTE | 2021-04-03 07:35 | NUR ---
RECEIVED REPORT FROM SMASHER HAND NURSE. PATIENT LYING DOWN IN BED. NO DISTRESS NOTED. ON ETT TO OGTUBE WITH FEEDING INFUSING PER MD ORDERS. VENT SETTINGS: ACPRVC FIO2:24%, VT:375, RATE:20, PEEP:5. NO VASOPRESSORS AT THIS TIME. ONLY ON PRECEDEX. COLOSTOMY SITE INTACT PATENT. WILL BRADFORD CATHETER IN PLACE. WILL CONTINUE TO MONITOR.
[2021-04-03] MEDS: NOREPINEPHRINE 16 MG in DEXTROSE 5% 250 ML IV PRN (09:18)
[2021-04-03] MEDS: ASPIRIN 81 MG TAB.CHEW PO SCH (09:19)
[2021-04-03] MEDS: levETIRAcetam 1,000 MG in NACL 0.9% 100 ML IV SCH ×2 (09:19→21:00)
[2021-04-03] MEDS: ATORVASTATIN 20 MG TAB PO SCH (09:20)
[2021-04-03] MEDS: ENOXAPARIN 40 MG/0.4 ML SYR SUBQ SCH (09:20)
--- NOTE | 2021-04-03 09:32 | NUR ---
SCHEDULED MEDICATIONS DUE GIVEN. WILL CONTINUE TO MONITOR.
--- NOTE | 2021-04-03 10:37 | NUR ---
ORAL CARE PERFORMED. WOUND DRESSING ON NECK PERFORMED PER MD ORDERS. WILL CONTINUE TO MONITOR.
[2021-04-03] MEDS: ALGINATE DRESSING MC SCH (11:50)
--- NOTE | 2021-04-03 12:10 | NUR ---
SCHEDULED MEDICATIONS DUE GIVEN. WILL CONTINUE TO MONITOR.
[2021-04-03] MEDS: VANCOMYCIN 1,000 MG in DEXTROSE 5% 250 ML IV SCH (12:56)
--- NOTE | 2021-04-03 12:56 | NUR ---
SCHEDULED MEDICATIONS DUE GIVEN. WILL CONTINUE TO MONITOR.
--- NOTE | 2021-04-03 13:48 | NUR ---
EQUAL CHEST RISE GOOD AERATION THROUGHOUT BILATERAL LUNG HIGH AIRWAY PATENT
--- NOTE | 2021-04-03 17:46 | NUR ---
SEATED STABLE EQUAL CHEST RISE GOOD AERATION THROUGHOUT BILATERAL LUNG HIGH AIRWAY PATENT
[2021-04-03] MEDS ORDERED: DEXMEDETOMIDINE HCL 100 MCG/ML 2 ML VIAL IV ONE (22:45)
--- NOTE | 2021-04-03 23:42 | NUR ---
PATIENT NOT ALERT RESPONSIVE TO STIMULI MOVES HER FOOT AT TIMES AND HER HAND A LITTLE. PATIENT HAS A HEALING SOAR ON CHIN, AND RIGHT CHEEK WITH DRESSING INTACT. PATIENT HAS ET-TUBE AC/PRVC RATE 20, TV 375, FI02 24%, PEEP 5 SAT 99%. LUNGS DIMINISH. ON MONITOR SINUS WITH SOME PVC,S. PATIENT IS A MODIFIED CODE HAS A OGT ON VITAL 45 HOURGETTING 170CC WATER EVERY SIX HOURS. HAS A LEFT I.J INFUSING PRECEDEX 0.3 MCG AND LEVOPHED 4 MCG, N.S 5 CC HOUR.. HAS A F/C DRAINING CLEAR YELLOW URINE. PATIENT HAS A COLOSTOMY BAG WITH GREEN SOFT STOOL IN BAG. PATIENT LEFT ARM IS SWOLLEN WEEPING RIGHT ARM SWOLLEN NO WEEPING. LOWER LEGS NOT SWOLLEN AT ANKLES. NO DISTRESS AT THIS TIME.
[2021-04-04] VITALS (31 sets, daily range): BP systolic 85–126; BP diastolic 23–99
[2021-04-04 00:25] LABS: APPEARANCE,URINE CLOUDY (CLEAR); BILIRUBIN,URINE NEGATIVE (NEGATIVE); BLOOD, URINE 3+ (NEGATIVE); COLOR,URINE YELLOW (YELLOW); LEUKOCYTE ESTERASE ,URINE 3+ (NEGATIVE); NITRITE, URINE NEGATIVE (NEGATIVE); UGLUCOSE NEGATIVE (NEGATIVE)
[2021-04-04 00:53] LABS: BARBITURATE, URINE NEGATIVE ng/ml (NEG <=200); BENZODIAZEPINE, URINE NEGATIVE ng/mL (NEG <=200); CANNABINOID, URINE NEGATIVE ng/mL (NEG <=50); COCAINE, URINE NEGATIVE ng/mL (NEG <=300); OPIATE, URINE POSITIVE ng/mL (NEG <=2000); PHENCYCLIDINE SCREEN,URINE NEGATIVE ng/mL (NEG <=25)
[2021-04-04 00:55] LABS: RBC,URINE 0-5 /HPF (0-5); WBC,URINE TOO MANY TO COUNT /HPF (0-5)
[2021-04-04] MEDS: VANCOMYCIN 1,000 MG in DEXTROSE 5% 250 ML IV SCH ×2 (01:00→12:07)
[2021-04-04] MEDS: GAUZE TP SCH ×2 (01:16→12:09)
[2021-04-04] MEDS: PIPERACILLIN/TAZOBACTAM 3.375 GM in DEXTROSE 5% 50 ML IV SCH ×3 (05:30→21:08)
[2021-04-04 05:33] LABS: BASOPHILS % (AUTO) 0.1 % (0.0-2.0); EOSINOPHILS # (AUTO) 0.2 K/uL (0-0.4); EOSINOPHILS % (AUTO) 1.3 % (0.0-4.0); HEMATOCRIT 26.5 % (36-48); HEMOGLOBIN 8.3 g/dL (12.0-16.0); LYMPHOCYTES # (AUTO) 1.1 K/uL (2.5-16.5); LYMPHOCYTES % (AUTO) 7.7 % (20.5-51.1); MEAN CORPUSCULAR HEMOGLOBIN 24 pg (27-31); MEAN CORPUSCULAR HGB CONC 31 g/dL (33-37); MEAN CORPUSCULAR VOLUME 77.7 fL (80-94); MONOCYTES # (AUTO) 1.3 K/uL (0.8-1.0); MONOCYTES % (AUTO) 9.8 % (1.7-9.3); NEUTROPHILS # (AUTO) 11.1 K/uL (1.8-7.7); NEUTROPHILS % (AUTO) 81.1 % (42.2-75.2); PLATELET COUNT (AUTO) 329 K/uL (140-450); RED CELL DISTRIBUTION WIDTH 18.2 % (11.6-13.7); WHITE BLOOD COUNT (AUTO) 13.7 K/uL (4.8-10.8)
[2021-04-04 06:11] LABS: ALBUMIN 1.5 g/dL (3.4-5.0); ANION GAP 10.4 (8-16); ASPARTATE AMINOTRANSFERASE 98 U/L (15-37); CARBON DIOXIDE 26.7 mmol/L (21-32); CHLORIDE 107 mmol/L (98-107); CREATININE 0.4 mg/dL (0.6-1.3); GLUCOSE 110 mg/dL (74-106); MAGNESIUM 1.9 mg/dL (1.8-2.4); POTASSIUM 3.1 mmol/L (3.5-5.1); SODIUM SERUM 141 mmol/L (136-145); TOTAL BILIRUBIN 0.3 mg/dL (0.0-1.0); UREA NITROGEN, BLOOD 12 mg/dL (7-18)
--- NOTE | 2021-04-04 07:30 | NUR ---
RECEIVED REPORT FROM [facility] RN PATIENT SLEEPING IN BED ETT TO VENT SETTING AC/PRVC FIO2 24% VT 375 RATE 20 PEER OF 5 O2 SAT98%IV INFUSING ON CENTRAL LINE AT LEFT IJ PRESIDEX AT 0.3MCG/KG/MIN , LEVOPHED AT 2NCG/MIN, BRADFORD CATH DRAIN CLEAR YELLOW URINE.
[2021-04-04] MEDS: ASPIRIN 81 MG TAB.CHEW PO SCH (09:00)
[2021-04-04] MEDS: ATORVASTATIN 20 MG TAB PO SCH (09:00)
[2021-04-04] MEDS: FOAM DRESSING TP SCH (09:00)
[2021-04-04] MEDS: ENOXAPARIN 40 MG/0.4 ML SYR SUBQ SCH (09:00)
[2021-04-04] MEDS: levETIRAcetam 1,000 MG in NACL 0.9% 100 ML IV SCH ×2 (09:00→21:43)
--- NOTE | 2021-04-04 09:30 | NUR ---
SEEN BY NIURKA MUÑOZ ,NO ORDER CHANGED.
--- NOTE | 2021-04-04 10:46 | NUR ---
SEEN BY DR. FAROOQ NO ORDER RECEIVED.
--- NOTE | 2021-04-04 11:20 | NUR ---
SEEN BY DR. TOMAS , NO ORDER CHANGED.
[2021-04-04] MEDS: ALGINATE DRESSING MC SCH (12:08)
--- NOTE | 2021-04-04 13:09 | NUR ---
04/04/21 RD FOLLOW UP COMPLETED PLEASE REFER TO NUTRITION ASSESSMENT UNDER CARE ACTIVITY FOR ESTIMATED NUTRITIONAL NEEDS. 1. CONTINUE VITAL AF @45ML/HR, WATER FLUSH 170ML, Q6H -THIS PROVIDES 1080 ML, 1296 KCALS AND 81 GM PROTEIN 2. CONTINUE NOVA ONCE DAILY 3. RD TO FOLLOW-UP 2-3 DAYS, HIGH RISK REVIEWED BY GREG MCDONNELL RD
--- NOTE | 2021-04-04 13:30 | NUR ---
REPOSITION, DRESSING CHANGED ORAL CARE AND SKIN CARE GIVE
--- NOTE | 2021-04-04 18:00 | NUR ---
REPOSITION EMPTY [id number] ML STOOL FROM COLOSTOMY BAG 125ML VITALSIGN WITH IN NORNAL LIMIT.
--- NOTE | 2021-04-04 19:20 | NUR ---
RECEIVED REPORT FROM DAY SHIFT NURSE, ASSUMED CARE. PATIENT SEDATED IN BED WITH VENT IN PLACE FIO2 24, PEEP 5, BRADFORD CATHETER IN PLACE, COLOSTOMY BAG IN PLACE. CENTRAL LEFT IJ IN PLACE RUNNING LEVO AT 2 MCG, PRECEDEX AT 0.3, AND NS TKO. OG IN PLACE RUNNING VITAL AF 1.2 AT 45 ML/HR. ALL SAFETY MEASURES IN PLACE INCLUDING BED LOCKED AND AT LOWEST POSITION. WILL CONTINUE WITH POC.
--- NOTE | 2021-04-04 21:10 | NUR ---
ADMINISTERED 2100 MEDICATION PER ORDERS. PATIENT'S DAUGHTER PEPE AT [facility], DISCUSSED REGARDING SEDATION AND PAIN MANAGEMENT MEASURES. PATIENT'S DAUGHTER ALSO ADDRESSED ALLERGIES HER MOTHER HAS. RT THERAPIST DARION AT BEDSIDE ALSO ANSWERED LUNG AND VENT ASSOCIATED QUESTIONS. WILL CONTINUE WITH POC.
[2021-04-04] MEDS ORDERED: CRUSHER, PILL MC ONE (23:20)
--- NOTE | 2021-04-04 23:30 | NUR ---
LEVOPHED STOPPED, VS: BP 107/48, HR 93, O2 SAT 97%. WILL CONTINUE TO MONITOR HR AND BP.
--- NOTE | 2021-04-04 23:40 | NUR ---
REPOSITIONED PT, VAP ORAL CARE GIVEN, REPLACED AND CHANGED TUBE FEEDING SET
[2021-04-04] MEDS: POTASSIUM CHLORIDE 10 MEQ TABER PO PRN (23:44)
--- NOTE | 2021-04-04 23:44 | NUR ---
ADMINISTERED 40 MEQS K DUR REPLACEMENT D/T PT LAB K 3.1 RESULT
[2021-04-05] VITALS (30 sets, daily range): BP systolic 84–124; BP diastolic 46–86
[2021-04-05] MEDS: GAUZE TP SCH ×2 (01:00→13:00)
[2021-04-05] MEDS: VANCOMYCIN 1,000 MG in DEXTROSE 5% 250 ML IV SCH ×2 (01:57→13:30)
[2021-04-05] MEDS ORDERED: DEXMEDETOMIDINE HCL 100 MCG/ML 2 ML VIAL IV ONE (05:32)
[2021-04-05 05:43] LABS: ALBUMIN 1.6 g/dL (3.4-5.0); ANION GAP 9.6 (8-16); ASPARTATE AMINOTRANSFERASE 91 U/L (15-37); CARBON DIOXIDE 26.7 mmol/L (21-32); CHLORIDE 105 mmol/L (98-107); CREATININE 0.4 mg/dL (0.6-1.3); GLUCOSE 110 mg/dL (74-106); MAGNESIUM 1.7 mg/dL (1.8-2.4); POTASSIUM 3.3 mmol/L (3.5-5.1); SODIUM SERUM 138 mmol/L (136-145); TOTAL BILIRUBIN 0.3 mg/dL (0.0-1.0); UREA NITROGEN, BLOOD 14 mg/dL (7-18)
[2021-04-05] MEDS: DEXMEDETOMIDINE HCL 400 MCG in NACL 0.9% 96 ML IV PRN (05:48)
[2021-04-05] MEDS: PIPERACILLIN/TAZOBACTAM 3.375 GM in DEXTROSE 5% 50 ML IV SCH ×3 (05:48→21:33)
--- NOTE | 2021-04-05 06:20 | NUR ---
ADMINISTERED PRN MAGNESIUM DUE TO LEVEL 1.7 AND ADMINISTERED PRN POTASSIUM FOR LEVEL 3.3.
[2021-04-05] MEDS: MAG SULF 2000 MG/WATER PREMIX 50 ML IV PRN (06:41)
[2021-04-05] MEDS: POTASSIUM CHLORIDE 10 MEQ TABER PO PRN (06:42)
--- NOTE | 2021-04-05 07:15 | NUR ---
ENDORSED REPORT TO DAY SHIFT NURSE.
[2021-04-05] MEDS: ENOXAPARIN 40 MG/0.4 ML SYR SUBQ SCH (08:37)
[2021-04-05] MEDS: ATORVASTATIN 20 MG TAB PO SCH (08:37)
[2021-04-05] MEDS: ASPIRIN 81 MG TAB.CHEW PO SCH (08:37)
[2021-04-05] MEDS: levETIRAcetam 1,000 MG in NACL 0.9% 100 ML IV SCH ×2 (08:40→22:00)
[2021-04-05] MEDS: ALGINATE DRESSING MC SCH (13:00)
--- NOTE | 2021-04-05 19:15 | NUR ---
RECEIVED REPORT FROM DAY SHIFT NURSE. ASSUMED CARE. PATIENT IN BED IN NO APPARENT ACUTE DISTRESS. SEDATED, PRECEDEX 0.4 MCG AND NS 5 ML/HR RUNNING VIA LEFT CENTRAL IJ LINE. VENT SETTING AC PRVC, 24 FIO2, 375 TV, PEEP 5, RATE 20. BRADFORD CATHETER IN PLACE WITH 75 ML OR URINE. COLOSTOMY BAG IN PLACE. OG IN PLACE RUNNING VITAL AF 1.2 AT 45 ML/ HR. WILL CONTINUE TO MONITOR AND FOLLOW POC. ALL SAFETY MEASURES IN PLACE INCLUDING BED AT LOWEST POSITION, AND BED LOCKED.
--- NOTE | 2021-04-05 21:33 | NUR ---
ADMINISTERED 2100 MEDICATION VIA IV PIGGYBACK. CHECKED OG RESIDUAL, 200 ML RESIDUAL OBTAINED. STOPPED TUBE FEEDING AT THIS TIME. WILL CONTINUE TO MONITOR AND FOLLOW POC.
[2021-04-06] VITALS (22 sets, daily range): BP systolic 92–125; BP diastolic 51–73
[2021-04-06] MEDS: GAUZE TP SCH ×2 (01:00→13:40)
[2021-04-06] MEDS: VANCOMYCIN 1,000 MG in DEXTROSE 5% 250 ML IV SCH ×2 (01:11→13:40)
[2021-04-06] MEDS: DEXMEDETOMIDINE HCL 400 MCG in NACL 0.9% 96 ML IV PRN ×2 (02:03→14:57)
[2021-04-06] MEDS ORDERED: Z-GUARD PASTE TP SCH (02:50)
--- NOTE | 2021-04-06 03:20 | NUR ---
PRECEDEX INCREASED TO 0.6 MCG. PATIENT IN NO APPARENT ACUTE DISTRESS. ALL SAFETY MEASURES IN PLACE. WILL CONTINUE WITH POC.
[2021-04-06] MEDS: PIPERACILLIN/TAZOBACTAM 3.375 GM in DEXTROSE 5% 50 ML IV SCH ×2 (04:07→12:36)
--- NOTE | 2021-04-06 04:08 | NUR ---
0500 MEDICATION GIVEN. PATIENT IN BED SEDATED IN NO APPARENT ACUTE DISTRESS. PRECEDEX RUNNING. WILL CONTINUE WITH POC.
[2021-04-06 07:11] LABS: ALBUMIN 1.5 g/dL (3.4-5.0); ANION GAP 13.3 (8-16); ASPARTATE AMINOTRANSFERASE 91 U/L (15-37); CARBON DIOXIDE 24.2 mmol/L (21-32); CHLORIDE 105 mmol/L (98-107); CREATININE 0.4 mg/dL (0.6-1.3); GLUCOSE 105 mg/dL (74-106); MAGNESIUM 1.8 mg/dL (1.8-2.4); POTASSIUM 3.5 mmol/L (3.5-5.1); SODIUM SERUM 139 mmol/L (136-145); TOTAL BILIRUBIN 0.3 mg/dL (0.0-1.0); UREA NITROGEN, BLOOD 15 mg/dL (7-18)
--- NOTE | 2021-04-06 07:12 | NUR ---
GAVE REPORT AND ENDORSED CARE TO DAY SHIFT NURSE.
--- NOTE | 2021-04-06 07:30 | NUR ---
RECEIVED ON A [employer] 3APE R860 VENTILATOR PLUGGED INTO RED OUTLET TOLERATING WELL WITHOUT ADVERSE REACTIONS NOTED TO AN ENDOTRACHEAL TUBE #6.5 SECURED AT 23cm TEETH/GUM LINE WITH AN ANCHOR FAST CUFF PRESSURE CHECKED NOTED AMBU BAG AT BEDSIDE STABLE GOOD CHEST RISE ENDOTRACHEAL SUCTION FOR SMALL THIN YELLOW SECRETIONS AIRWAY PATENT
[2021-04-06] MEDS: ATORVASTATIN 20 MG TAB PO SCH (08:59)
[2021-04-06] MEDS: ASPIRIN 81 MG TAB.CHEW PO SCH (08:59)
[2021-04-06] MEDS: ENOXAPARIN 40 MG/0.4 ML SYR SUBQ SCH (09:00)
[2021-04-06] MEDS: levETIRAcetam 1,000 MG in NACL 0.9% 100 ML IV SCH (09:18)
[2021-04-06 09:21] LABS: BASOPHILS % (AUTO) 0.1 % (0.0-2.0); EOSINOPHILS # (AUTO) 0.4 K/uL (0-0.4); EOSINOPHILS % (AUTO) 2.6 % (0.0-4.0); HEMATOCRIT 24.2 % (36-48); HEMOGLOBIN 7.6 g/dL (12.0-16.0); LYMPHOCYTES # (AUTO) 0.9 K/uL (2.5-16.5); LYMPHOCYTES % (AUTO) 6.5 % (20.5-51.1); MEAN CORPUSCULAR HEMOGLOBIN 24 pg (27-31); MEAN CORPUSCULAR HGB CONC 31 g/dL (33-37); MEAN CORPUSCULAR VOLUME 77.2 fL (80-94); MONOCYTES # (AUTO) 1.1 K/uL (0.8-1.0); MONOCYTES % (AUTO) 7.6 % (1.7-9.3); NEUTROPHILS # (AUTO) 11.7 K/uL (1.8-7.7); NEUTROPHILS % (AUTO) 83.2 % (42.2-75.2); PLATELET COUNT (AUTO) 367 K/uL (140-450); RED BLOOD CELL COUNT(AUTO) 3.14 MIL/uL (4.20-5.40)
[2021-04-06] MEDS ORDERED: KCL 20 MEQ/WATER INJ PREMIX 200 ML IV SCH (09:30)
--- NOTE | 2021-04-06 09:58 | NUR ---
RESTING COMFORTABLY EQUAL CHEST RISE GOOD AERATION THROUGHOUT BILATERAL LUNG HIGH AIRWAY PATENT
--- NOTE | 2021-04-06 10:46 | NUR ---
(04/06/21) RD FOLLOW UP COMPLETED PLEASE REFER TO NUTRITION PROGRESS NOTE UNDER CARE ACTIVITY FOR ESTIMATED NUTRITION NEEDS. RD RECOMMENDATIONS: 1. CONTINUE VITAL AF @45ML/HR, WATER FLUSH 170ML, Q6H. THIS PROVIDES 1080 ML, 1296 KCALS AND 81 GM PROTEIN 2. CONTINUE NOVA ONCE DAILY 3. RD TO FOLLOW-UP 2-3 DAYS, HIGH RISK BI DONOVAN, , RDN
--- NOTE | 2021-04-06 11:05 | NUR ---
RECEIVED A CALL FROM RICA FROM [facility], PATIENT WILL BE ACCEPTED IN ICU BED [id number], NUMBER TO GIVE REPORT [phone]
--- NOTE | 2021-04-06 11:45 | NUR ---
REPORT CALLED TO , SPOKE WITH SHU URBINA. ALL QUESTIONS ANSWERED. AWAITING TRANSPORT ARRIVAL AT 1400 TODAY.
--- NOTE | 2021-04-06 13:07 | NUR ---
SEDATED GOOD CHEST RISE ENDOTRACHEAL TUBE SUCTION FOR MODERATE THIN YELLOW SECRETIONS AIRWAY PATENT
[2021-04-06] MEDS: ALGINATE DRESSING MC SCH (13:40)
--- NOTE | 2021-04-06 14:40 | NUR ---
TRANSFER CREW HERE, REPORT GIVEN TO NAKITA URBINA
--- NOTE | 2021-04-06 15:03 | NUR ---
PT LEFT WITH TRANSFER CREW TO [facility]. ALL BELONGINGS AND CHART SENT WITH PT
== END 2021-04-06 15:00 | disposition short-term general hospital (02) | DRG 870 ==
LOC: MED 05:35 → MTU 10:44 → UNDOADMIN 10:44 → MIC 10:44 → MTU 11:28
PROVIDERS: ADMIT Family Medicine; ATTEND Family Medicine
PROC: 5A1955Z Respiratory Ventilation, Greater than 96 Consecutive Hours (ICD-10-PCS; principal; 2021-03-27)
PROC: 02H633Z Insertion of Infusion Device into Right Atrium, Percutaneous Approach (ICD-10-PCS; 2021-03-27)
PROC: 0BH17EZ Insertion of Endotracheal Airway into Trachea, Via Natural or Artificial Opening (ICD-10-PCS; 2021-03-27)
PROC: B548ZZA Ultrasonography of Superior Vena Cava, Guidance (ICD-10-PCS; 2021-03-27)
DX: A40.1 Sepsis due to streptococcus, group B (principal); R65.21 Severe sepsis with septic shock; J96.01 Acute respiratory failure with hypoxia; E43 Unspecified severe protein-calorie malnutrition; I50.43 Acute on chronic combined systolic (congestive) and diastolic (congestive) heart failure; N17.0 Acute kidney failure with tubular necrosis; J69.0 Pneumonitis due to inhalation of food and vomit; I21.A1 Myocardial infarction type 2; R40.20 Unspecified coma; N39.0 Urinary tract infection, site not specified; G93.1 Anoxic brain damage, not elsewhere classified; C41.1 Malignant neoplasm of mandible; E87.1 Hypo-osmolality and hyponatremia; I42.9 Cardiomyopathy, unspecified; Y95 Nosocomial condition; I11.0 Hypertensive heart disease with heart failure; L08.9 Local infection of the skin and subcutaneous tissue, unspecified; R13.11 Dysphagia, oral phase; E87.6 Hypokalemia; E83.42 Hypomagnesemia; J44.9 Chronic obstructive pulmonary disease, unspecified; E86.0 Dehydration; K80.20 Calculus of gallbladder without cholecystitis without obstruction; Z20.822 Contact with and (suspected) exposure to COVID-19; K57.90 Diverticulosis of intestine, part unspecified, without perforation or abscess without bleeding; K76.0 Fatty (change of) liver, not elsewhere classified; I25.10 Atherosclerotic heart disease of native coronary artery without angina pectoris; Z66 Do not resuscitate; E83.39 Other disorders of phosphorus metabolism; Z95.1 Presence of aortocoronary bypass graft; Z86.73 Personal history of transient ischemic attack (TIA), and cerebral infarction without residual deficits; Z93.1 Gastrostomy status; Z88.1 Allergy status to other antibiotic agents; Z88.5 Allergy status to narcotic agent; Z88.8 Allergy status to other drugs, medicaments and biological substances; Z91.048 Other nonmedicinal substance allergy status; Z68.22 Body mass index [BMI] 22.0-22.9, adult; Z91.040 Latex allergy status; Z79.899 Other long term (current) drug therapy; Z93.3 Colostomy status
CPT/HCPCS: 36415; 36600; 70450; 71045; 80048; 80053; 80202; 80305; 81001; 82150; 82550; 82553; 82803; 83036; 83605; 83690; 83735; 83880; 84100; 84439; 84443; 84484; 85025; 85610; 85730; 87040; 87070; 87081; 87086; 87186; 87205; 93005; 94003; 94660; 96361; 96365; 99291; J0330; J1650; J1940; J1953; J2250; J2270; J2543; J2704; J3010; J3370; J3475; J3480; J3490; J7030; J7060; Q0092; Q9967